=== PATIENT | female | born 1995 | race Hispanic/Latino ===

== ENCOUNTER 2017-09-17 06:54 | Emergency (ER) | payer SELFPAY ==
[2017-09-17 07:41] LABS: Urine Blood 2+ (NEG); Urine Glucose NEGATIVE (NEG); Urine Protein 1+ (NEG); Urine pH 6.5 (5.0-7.0)
[2017-09-17 07:45] LABS: Urine Bacteria 20-50 /HPF (<20); Urine Culture Reflex Order NOT NEEDED; Urine Mucus HEAVY /HPF (NONE SEEN)
--- NOTE | 2017-09-17 08:05 | EDPHYS ---
Physician Documentation [facility] Name: Norma Faulkner Age: 22 yrs Sex: Female : 1995 Arrival Date: 09/17/2017 Time: 06:55 Bed 7 Private MD: ED Physician Deacon Bravo HPI: 09/17 07:57 This 22 yrs old Female presents to ER via Ambulatory with complaints of gs Abdominal Cramping. 07:57 The patient presents with pelvic pain, that is located in/on the pelvis, urinary gs symptoms, dysuria. Onset: The symptoms/episode began/occurred yesterday. Modifying factors: The symptoms are alleviated by nothing, the symptoms are aggravated by nothing. Associated signs and symptoms: Pertinent positives: cramping, dysuria, Pertinent negatives: diarrhea, fever, nausea, vomiting. Severity of symptoms: At their worst the symptoms were moderate, in the emergency department the symptoms are unchanged. 07:57 The patient has experienced similar episodes in the past, a few times, today's symptoms gs are similar, to when the patient was apparently diagnosed with uti. 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 - Social history:: Smoking status: Patient/guardian denies using tobacco. ROS: 07:57 All other systems are negative. gs Exam: 07:57 Head/Face: Normocephalic, atraumatic. Eyes: Pupils equal round and reactive to light, gs extra-ocular motions intact. Lids and lashes normal. Conjunctiva and sclera are non-icteric and not injected. Cornea within normal limits. Periorbital areas with no swelling, redness, or edema. ENT: Nares patent. No nasal discharge, no septal abnormalities noted. Tympanic membranes are normal and external auditory canals are clear. Oropharynx with no redness, swelling, or masses, exudates, or evidence of obstruction, uvula midline. Mucous membranes moist. Neck: Trachea midline, no thyromegaly or masses palpated, and no cervical lymphadenopathy. Supple, full range of motion without nuchal rigidity, or vertebral point tenderness. No Meningismus. Chest/axilla: Normal chest wall appearance and motion. Nontender with no deformity. No lesions are appreciated. Cardiovascular: Regular rate and rhythm with a normal S1 and S2. No gallops, murmurs, or rubs. Normal PMI, no JVD. No pulse deficits. Respiratory: Lungs have equal breath sounds bilaterally, clear to auscultation and percussion. No rales, rhonchi or wheezes noted. No increased work of breathing, no retractions or nasal flaring. Back: No spinal tenderness. No costovertebral tenderness. Full range of motion. Skin: Warm, dry with normal turgor. Normal color with no rashes, no lesions, and no evidence of cellulitis. MS/ Extremity: Pulses equal, no cyanosis. Neurovascular intact. Full, normal range of motion. Neuro: Awake and alert, GCS 15, oriented to person, place, time, and situation. Cranial nerves II-XII grossly intact. Motor strength 5/5 in all extremities. Sensory grossly intact. Cerebellar exam normal. Normal gait. 07:57 Constitutional: The patient appears alert, awake. 07:57 Abdomen/GI: Palpation: mild abdominal tenderness, in the suprapubic area, right lower quadrant and left lower quadrant, rebound tenderness, is not appreciated. Vital Signs: 07:17 BP 131 / 89; Pulse 77; Resp 16; Temp 98.2; Pulse Ox 99% on R/A; Weight 69.85 kg; Height iw 5 ft. (152.40 cm); Pain 9/10; 07:17 Body Mass Index 30.08 (69.85 kg, 152.40 cm) MDM: 07:28 Patient medically screened. gs 07:57 Differential diagnosis: nonspecific abdominal pain, urinary tract infection. Data reviewed: vital signs, nurses notes. Response to treatment: the patient's symptoms have mildly improved after treatment, and as a result, I will discharge patient. 09/17 07:28 Order name: Urine Microscopic Only; Complete Time: 07:49 09/17 07:33 Order name: Urine Dipstick--Ancillary (enter results); Complete Time: 07:42 eb 09/17 07:28 Order name: Urine Dipstick-Ancillary (obtain specimen); Complete Time: 07:39 09/17 07:33 Order name: Urine --Ancillary (enter results); Complete Time: 07:42 eb Administered Medications: No medications were administered Disposition: 09/17/17 08:04 Discharged to Home. Impression: Cystitis. - Condition is Stable. - Discharge Instructions: Urinary Tract Infection. - Prescriptions for Macrobid 100 mg Oral Capsule - take 1 capsule by ORAL route every 12 hours for 5 days; 10 capsule. - Medication Reconciliation Form, Thank You Letter, Antibiotic Education, Prescription Opioid Use form. - Follow up: Deacon Bravo MD; When: 2 - 3 days; Reason: Re-evaluation by your physician. Signatures: Dispatcher [employer] EDJodi Christianson RN RN iw Baxter, Heather, RN RN Deacon Bravo MD MD
--- NOTE | 2017-09-17 08:05 | ER ---
Nurse's Notes [facility] Name: Norma Faulkner Age: 22 yrs Sex: Female : 1995 Arrival Date: 09/17/2017 Time: 06:55 Bed 7 Private MD: Diagnosis: Cystitis Presentation: 09/17 07:20 Presenting complaint: Patient states: has had lower abd cramping X 2 days, worse today, iw also started having pain with urination today, denies vomiting or diarrhea, c/o mild nausea. Transition of care: patient was not received from another setting of care. Onset of symptoms was September 15, 2017. Initial Sepsis Screen: Does the patient meet any 2 criteria? No. Patient's initial sepsis screen is negative. Does the patient have a suspected source of infection? No. Patient's initial sepsis screen is negative. Care prior to arrival: None. 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 - Social history:: Smoking status: Patient/guardian denies using tobacco. Screenin:22 Abuse screen: Denies threats or abuse. Denies injuries from another. Nutritional hb screening: No deficits noted. Tuberculosis screening: No symptoms or risk factors identified. Fall Risk None identified. Assessment: 07:25 General: Appears in no apparent distress. Behavior is calm, cooperative. Pain: Pain hb currently is 1 out of 10 on a pain scale. Neuro: Level of Consciousness is awake, alert, obeys commands, Oriented to person, place, time, situation. Cardiovascular: Capillary refill < 3 seconds Patient's skin is warm and dry. Respiratory: Airway is patent Respiratory effort is even, unlabored, Respiratory pattern is regular, symmetrical, Breath sounds are clear bilaterally. GI: Abdomen is non-distended, Bowel sounds present X 4 quads. Abd is soft and non tender X 4 quads. : No signs and/or symptoms were reported regarding the genitourinary system. EENT: No signs and/or symptoms were reported regarding the EENT system. Derm: No signs and/or symptoms reported regarding the dermatologic system. Skin is intact, is healthy with good turgor, Skin is pink, warm \T\ dry. Musculoskeletal: No signs and/or symptoms reported regarding the musculoskeletal system. Vital Signs: 07:17 BP 131 / 89; Pulse 77; Resp 16; Temp 98.2; Pulse Ox 99% on R/A; Weight 69.85 kg; Height iw 5 ft. (152.40 cm); Pain 9/10; 07:17 Body Mass Index 30.08 (69.85 kg, 152.40 cm) iw ED Course: 06:55 Patient arrived in ED. ds1 07:16 Deacon Bravo MD is Attending Physician. gs 07:17 Thiago Fishman RN is Primary Nurse. mg2 07:17 Arm band placed on. iw 07:21 Triage completed. iw 07:21 Pavithra Lisa RN is Primary Nurse. hb 07:22 Patient has correct armband on for positive identification. Placed in gown. Bed in low hb position. Call light in reach. Side rails up X 1. 08:04 Deacon Bravo MD is Referral Physician. gs 08:12 No provider procedures requiring assistance completed. Patient did not have IV access hb during this emergency room visit. Administered Medications: No medications were administered Outcome: 08:04 Discharge ordered by . gs 08:12 Discharged to home ambulatory. hb 08:12 Condition: stable 08:12 Discharge instructions given to patient, Instructed on discharge instructions, follow up and referral plans. medication usage, Demonstrated understanding of instructions, follow-up care, medications, Prescriptions given X 1. 08:13 Patient left the ED. hb Signatures: Alessandra Loyola ds1 Jodi Alexandra RN RN Pavithra Lisa RN RN hb Deacon Bravo MD MD Thiago Fishman RN RN mg2 Corrections: (The following items were deleted from the chart) 07:22 07:17 BP 131 / 89; Pulse 77bpm; Resp 16bpm; Pulse Ox 99% RA; mg2 iw
[2017-09-17 08:17] VITALS: BP 131/89; TEMP 98.2; O2SAT 99
== END 2017-09-17 08:13 | disposition home or self-care (01) ==
LOC: ER 06:54
DX: N30.90 Cystitis, unspecified without hematuria (principal)
CPT/HCPCS: 81003; 81015; 81025; 99282

== ENCOUNTER 2018-05-05 10:26 | Emergency (ER) | payer OTHER, SELFPAY ==
--- OUTSIDE RECORDS SUMMARY | 2018-05-05 10:27 | XMS REPORT ---
:1995 Author Organization [facility] Address [address] [place] [address] Dr. Murphy [address] [place] [id number] Care Team Providers Name Role Phone Unavailable Unavailable Unavailable Problems This patient has no known problems. Allergies, Adverse Reactions, Alerts This patient has no known allergies or adverse reactions. Medications This patient has no known medications.
--- NOTE | 2018-05-05 11:55 | RAD REPORT ---
EXAM DESCRIPTION: RAD - Ankle Left 3 View -05/05/2018 11:19 am CLINICAL HISTORY: Left ankle pain status post injury FINDINGS: No fracture or dislocation is seen. Soft tissue swelling present
--- NOTE | 2018-05-05 12:10 | EDPHYS ---
Physician Documentation [facility] Name: Norma Faulkner Age: 22 yrs Sex: Female : 1995 Arrival Date: 05/05/2018 Time: 10:29 Bed 12 Private MD: Hugo Flower E ED Physician Deacon Bravo HPI: 05/05 12:04 This 22 yrs old Female presents to ER via Ambulatory with complaints of Ankle gs Injury. 12:04 The patient presents with an injury. The complaints affect the left ankle. Onset: The gs symptoms/episode began/occurred acutely. Context: The mechanism of injury involved inversion of the affected ankle. The mechanism of injury involved eversion of the affected ankle. Associated signs and symptoms: Pertinent negatives: numbness. Modifying factors: The symptoms are alleviated by nothing, the symptoms are aggravated by weight bearing. Severity of symptoms: At their worst the symptoms were moderate, in the emergency department the symptoms are unchanged. The patient has not experienced similar symptoms in the past. 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 - Social history:: Smoking status: Patient/guardian denies using tobacco. - Ebola Screening: : Patient denies travel to an Ebola-affected area in the 21 days before illness onset. ROS: 12:04 All other systems are negative. gs Exam: 12:04 Constitutional: The patient appears alert, awake. gs 12:04 Musculoskeletal/extremity: ROM: limited active range of motion due to pain, limited passive range of motion due to pain, Circulation is intact in all extremities. Sensation intact. Joints: the left ankle displays effusion, painful range of motion, swelling, tenderness. Vital Signs: 10:37 BP 119 / 90; Pulse 93; Resp 18; Temp 98.0; Pulse Ox 100% on R/A; Weight 71.67 kg (R); aj1 Height 5 ft. 0 in. (152.40 cm) (R); Pain 10/10; 10:37 Body Mass Index 30.86 (71.67 kg, 152.40 cm) aj1 MDM: 11:21 Patient medically screened. gs 12:04 Differential diagnosis: fracture, sprain. Data reviewed: vital signs, nurses notes. Counseling: I had a detailed discussion with the patient and/or guardian regarding: the historical points, exam findings, and any diagnostic results supporting the discharge/admit diagnosis, radiology results. Response to treatment: the patient's symptoms have mildly improved after treatment, and as a result, I will discharge patient. 05/05 10:46 Order name: Ankle Left 3 View; Complete Time: 12:06 EDMS Administered Medications: No medications were administered Disposition: 05/05/18 12:09 Discharged to Home. Impression: Sprain of ankle. - Condition is Stable. - Discharge Instructions: Ankle Sprain. - Medication Reconciliation Form, Thank You Letter, Antibiotic Education, Prescription Opioid Use form. - Follow up: Epifanio Mcintyre MD; When: 2 - 3 days; Reason: Re-evaluation by your physician. Signatures: Dispatcher [employer] EDHI Una Armstrong RN RN aj1 Deonna Hernandez RN RN ss Deacon Bravo MD MD Corrections: (The following items were deleted from the chart) 11:34 11:24 Ankle Left 3 View+RAD.RAD.BRZ ordered. [facility] EDHI 12:24 12:09 05/05/2018 12:09 Discharged to Home. Impression: Sprain of ankle. Condition is ss Stable. Forms are Medication Reconciliation Form, Thank You Letter, Antibiotic Education, Prescription Opioid Use. Follow up: Dr. Epifanio Mcintyre; When: 2 - 3 days; Reason: Re-evaluation by your physician. gs
--- NOTE | 2018-05-05 12:10 | ER ---
Nurse's Notes [facility] Name: Norma Faulkner Age: 22 yrs Sex: Female : 1995 Arrival Date: 05/05/2018 Time: 10:29 Bed 12 Private MD: Hugo Flower E Diagnosis: Sprain of ankle Presentation: 05/05 10:35 Presenting complaint: Patient states: She was trying to catch someone who was falling aj1 this morning, but she was wearing high heels and got knocked off balance and fell and rolled her left ankle. Patient reports pain to left ankle, states that she can not bear weight on left ankle due to pain. Transition of care: patient was not received from another setting of care. Onset of symptoms was May 05, 2018 at 06:00. Risk Assessment: Do you want to hurt yourself or someone else? Patient reports no desire to harm self or others. Initial Sepsis Screen: Does the patient meet any 2 criteria? No. Patient's initial sepsis screen is negative. Does the patient have a suspected source of infection? No. Patient's initial sepsis screen is negative. Care prior to arrival: None. 10:35 Method Of Arrival: Ambulatory aj1 10:35 Acuity: WINDY 4 aj1 Triage Assessment: 10:37 General: Appears in no apparent distress. uncomfortable, Behavior is calm, cooperative, aj1 appropriate for age. Pain: Complains of pain in left medial ankle Pain currently is 10 out of 10 on a pain scale. Neuro: Level of Consciousness is awake, alert, obeys commands. Cardiovascular: Patient's skin is warm and dry. Respiratory: Airway is patent Respiratory effort is even, unlabored, Respiratory pattern is regular, symmetrical. Musculoskeletal: Range of motion: limited in left ankle. 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 - Social history:: Smoking status: Patient/guardian denies using tobacco. - Ebola Screening: : Patient denies travel to an Ebola-affected area in the 21 days before illness onset. Screenin:40 Abuse screen: Denies threats or abuse. Denies injuries from another. Nutritional aj1 screening: No deficits noted. Tuberculosis screening: No symptoms or risk factors identified. Assessment: 10:40 General: Appears in no apparent distress. uncomfortable, Behavior is calm, cooperative, aj1 appropriate for age. Pain: Complains of pain in left ankle Pain does not radiate. Pain currently is 10 out of 10 on a pain scale. Neuro: Level of Consciousness is awake, alert, obeys commands. Cardiovascular: Patient's skin is warm and dry. Respiratory: Airway is patent Respiratory effort is even, unlabored, Respiratory pattern is regular, symmetrical. GI: No signs and/or symptoms were reported involving the gastrointestinal system. : No signs and/or symptoms were reported regarding the genitourinary system. EENT: No signs and/or symptoms were reported regarding the EENT system. Derm: No signs and/or symptoms reported regarding the dermatologic system. Skin is pink, warm \T\ dry. normal. Musculoskeletal: Capillary refill < 3 seconds, in left toes. Range of motion: limited in left ankle Swelling present in left ankle. Vital Signs: 10:37 BP 119 / 90; Pulse 93; Resp 18; Temp 98.0; Pulse Ox 100% on R/A; Weight 71.67 kg (R); aj1 Height 5 ft. 0 in. (152.40 cm) (R); Pain 10/10; 10:37 Body Mass Index 30.86 (71.67 kg, 152.40 cm) aj1 ED Course: 10:29 Patient arrived in ED. sb2 10:29 Hugo Flower MD is Private Physician. sb2 10:36 Triage completed. aj1 10:37 Arm band placed on Patient placed in an exam room. aj1 10:40 Deacon Bravo MD is Attending Physician. gs 10:40 Patient has correct armband on for positive identification. Call light in reach. aj1 10:40 Extremity injury workup initiated per nursing protocol. aj1 10:40 No provider procedures requiring assistance completed. aj1 11:20 Ankle Left 3 View In Process Unspecified. EDMS 11:21 Deonna Hernandez, MARIELY is Primary Nurse. ss 12:06 Epifanio Mcintyre MD is Referral Physician. gs 12:24 Patient did not have IV access during this emergency room visit. ss Administered Medications: No medications were administered Outcome: 12:09 Discharge ordered by . 12:24 Discharged to home ambulatory. 12:24 Condition: good 12:24 Discharge instructions given to patient, family, Instructed on discharge instructions, follow up and referral plans. medication usage, Demonstrated understanding of instructions, follow-up care, medications. 12:24 Patient left the ED. Signatures: Dispatcher [employer] EDNH Una Armstrong RN RN aj1 Deonna Hernandez RN RN Deacon Bravo MD MD Qi Duggan sb2
[2018-05-05 12:40] VITALS: BP 119/90; TEMP 98; O2SAT 100
== END 2018-05-05 12:24 | disposition home or self-care (01) ==
LOC: ER 10:26
DX: S93.402A Sprain of unspecified ligament of left ankle, initial encounter (principal); X58.XXXA Exposure to other specified factors, initial encounter; Y93.9 Activity, unspecified; Y92.9 Unspecified place or not applicable
CPT/HCPCS: 99283

== ENCOUNTER 2019-03-31 09:28 | Emergency (ER) | payer OTHER ==
--- NOTE | 2019-03-31 10:43 | ER ---
Nurse's Notes [facility] Name: Norma Faulkner Age: 23 yrs Sex: Female : 1995 Arrival Date: 03/31/2019 Time: 09:37 Bed 18 Private MD: Hugo Flower E Diagnosis: Conjunctivitis Presentation: 03/31 09:54 Presenting complaint: Patient states: L eye redness and pain that began 2 days ago. ss Denies drainage. Transition of care: patient was not received from another setting of care. Mechanism of Injury: No Mechanism of Injury. The patient denies any loss of vision. Onset of symptoms was March 28, 2019. Risk Assessment: Do you want to hurt yourself or someone else? Patient reports no desire to harm self or others. Initial Sepsis Screen: Does the patient meet any 2 criteria? No. Patient's initial sepsis screen is negative. Does the patient have a suspected source of infection? No. Patient's initial sepsis screen is negative. Care prior to arrival: None. 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 - Social history:: Smoking status: Patient/guardian denies using tobacco. - Ebola Screening: : Patient denies exposure to infectious person Patient denies travel to an Ebola-affected area in the 21 days before illness onset. Screenin:55 Abuse screen: Denies threats or abuse. Nutritional screening: No deficits noted. em Tuberculosis screening: No symptoms or risk factors identified. Fall Risk None identified. Vital Signs: 09:53 BP 132 / 92; Pulse 89; Resp 14; Temp 97.9(TE); Pulse Ox 98% on R/A; Weight 68.04 kg; ss Height 5 ft. 0 in. (152.40 cm); Pain 3/10; 09:53 Body Mass Index 29.29 (68.04 kg, 152.40 cm) ED Course: 09:37 Patient arrived in ED. mr 09:38 None, None is Private Physician. mr 09:38 Hugo Flower MD is Private Physician. mr 09:53 Arm band placed on right wrist. ss 09:55 Triage completed. ss 10:30 [facility]ede Stone F[facility]C [facility]. snw 10:30 Michael Johns MD is Attending Physician. snw 10:39 Jordan Scott LVN is Primary Nurse. em 10:55 Patient has correct armband on for positive identification. em 11:06 No provider procedures requiring assistance completed. Patient did not have IV access em during this emergency room visit. Administered Medications: 11:00 Drug: Tobramycin Drops (0.3 %) 2 drops Route: Ophthalmic; Site: left eye; em 11:05 Follow up: Response: Medication administered at discharge. em Outcome: 10:42 Discharge ordered by . snw 11:06 Discharged to home ambulatory. em 11:06 Condition: good 11:06 Discharge instructions given to patient, Instructed on discharge instructions, follow up and referral plans. medication usage, Demonstrated understanding of instructions, follow-up care, medications, Prescriptions given X 1. 11:07 Patient left the ED. em Signatures: Dede Stone FNP-C PLASTIC [employer]S FABRICATOR TRIMMER-Csnw Saundra Prasad mr Jordan Scott LVN LVN em Deonna Hernandez, MARIELY RN
--- NOTE | 2019-03-31 10:43 | EDPHYS ---
Physician Documentation [facility] Name: Norma Faulkner Age: 23 yrs Sex: Female : 1995 Arrival Date: 03/31/2019 Time: 09:37 Bed 18 Private MD: Hugo Flower E ED Physician Michael Johns HPI: 03/31 13:19 This 23 yrs old Female presents to ER via Ambulatory with complaints of Eye snw Pain. 13:19 The patient is experiencing redness, The patient sustained None. to the left eye, snw caused by an unknown mechanism. Onset: The symptoms/episode began/occurred suddenly, 3 day(s) ago, and became persistent. Duration: the symptoms are continuous. Aggravated by nothing. Associated signs and symptoms: Pertinent positives: None. Patient wears glasses. Severity of symptoms: At their worst the symptoms were mild. It is unknown whether or not the patient has had similar symptoms in the past. The patient has not recently seen a physician. using OTC eye . AUDIT TECH: 09:53 LMP 03/26/2019 ss Historical: - Allergies: 09:55 NKA; ss - Home Meds: 09:55 None [Active]; ss - PMHx: 09:55 None; ss - PSHx: 09:55 None; ss - Immunization history:: Adult Immunizations up to date. - Social history:: Smoking status: Patient/guardian denies using tobacco. - Ebola Screening: : Patient denies exposure to infectious person Patient denies travel to an Ebola-affected area in the 21 days before illness onset. ROS: 13:18 Constitutional: Negative for fever, chills, and weight loss, ENT: Negative for injury, snw pain, and discharge, Neck: Negative for injury, pain, and swelling, Cardiovascular: Negative for chest pain, palpitations, and edema, Respiratory: Negative for shortness of breath, cough, wheezing, and pleuritic chest pain, Abdomen/GI: Negative for abdominal pain, nausea, vomiting, diarrhea, and constipation, Back: Negative for injury and pain, : Negative for injury, bleeding, discharge, and swelling, MS/Extremity: Negative for injury and deformity, Skin: Negative for injury, rash, and discoloration, Neuro: Negative for headache, weakness, numbness, tingling, and seizure, Psych: Negative for depression, anxiety, suicide ideation, homicidal ideation, and hallucinations. 13:18 Eyes: Positive for redness, of the outer aspect of conjuctiva of left eye and inner aspect of conjunctiva of left eye. Exam: 13:17 Constitutional: This is a well developed, well nourished patient who is awake, alert, snw and in no acute distress. Head/Face: Normocephalic, atraumatic. ENT: Nares patent. No nasal discharge, no septal abnormalities noted. Tympanic membranes are normal and external auditory canals are clear. Oropharynx with no redness, swelling, or masses, exudates, or evidence of obstruction, uvula midline. Mucous membranes moist. Neck: Trachea midline, no thyromegaly or masses palpated, and no cervical lymphadenopathy. Supple, full range of motion without nuchal rigidity, or vertebral point tenderness. No Meningismus. Chest/axilla: Normal chest wall appearance and motion. Nontender with no deformity. No lesions are appreciated. Cardiovascular: Regular rate and rhythm with a normal S1 and S2. No gallops, murmurs, or rubs. Normal PMI, no JVD. No pulse deficits. Respiratory: Lungs have equal breath sounds bilaterally, clear to auscultation and percussion. No rales, rhonchi or wheezes noted. No increased work of breathing, no retractions or nasal flaring. Abdomen/GI: Soft, non-tender, with normal bowel sounds. No distension or tympany. No guarding or rebound. No evidence of tenderness throughout. Back: No spinal tenderness. No costovertebral tenderness. Full range of motion. Skin: Warm, dry with normal turgor. Normal color with no rashes, no lesions, and no evidence of cellulitis. MS/ Extremity: Pulses equal, no cyanosis. Neurovascular intact. Full, normal range of motion. Neuro: Awake and alert, GCS 15, oriented to person, place, time, and situation. Cranial nerves II-XII grossly intact. Motor strength 5/5 in all extremities. Sensory grossly intact. Cerebellar exam normal. Normal gait. Psych: Awake, alert, with orientation to person, place and time. Behavior, mood, and affect are within normal limits. 13:17 Eyes: Periorbital structures: appear normal, Pupils: no acute changes, Extraocular movements: no acute changes, Conjunctiva: injected, in the left eye, Corneas: are normal, Sclera: no appreciated abnormality. Vital Signs: 09:53 BP 132 / 92; Pulse 89; Resp 14; Temp 97.9(TE); Pulse Ox 98% on R/A; Weight 68.04 kg; ss Height 5 ft. 0 in. (152.40 cm); Pain 3/10; 09:53 Body Mass Index 29.29 (68.04 kg, 152.40 cm) ss MDM: 10:31 Patient medically screened. snw 13:19 Data reviewed: vital signs, nurses notes. Data interpreted: Pulse oximetry: on room air snw is 98 %. Interpretation: normal. Counseling: I had a detailed discussion with the patient and/or guardian regarding: the historical points, exam findings, and any diagnostic results supporting the discharge/admit diagnosis, the presence of at least one elevated blood pressure reading (>120/80) during this emergency department visit, the need for outpatient follow up, to return to the emergency department if symptoms worsen or persist or if there are any questions or concerns that arise at home. Special discussion: I discussed in detail with the patient the higher chance of wound infection based on his presenting history. Based on the history and exam findings, there is no indication for further emergent testing or inpatient evaluation. I discussed with the patient/guardian the need to see the primary care provider for further evaluation of the symptoms. Administered Medications: 11:00 Drug: Tobramycin Drops (0.3 %) 2 drops Route: Ophthalmic; Site: left eye; em 11:05 Follow up: Response: Medication administered at discharge. em Disposition: 03/31/19 10:42 Discharged to Home. Impression: Conjunctivitis. - Condition is Stable. - Discharge Instructions: Bacterial Conjunctivitis, Viral Conjunctivitis, Hand Washing. - Prescriptions for Polytrim 10,000 unit- 1 mg/mL Ophthalmic drops - instill 1 drop by OPHTHALMIC route every 4 hours to left eye; 1 bottle. Zyrtec 10 mg Oral Tablet - take 1 tablet by ORAL route once daily As needed; 20 tablet. - Work release form, Medication Reconciliation Form, Thank You Letter, Antibiotic Education, Prescription Opioid Use form. - Follow up: Emergency Department; When: As needed; Reason: Worsening of condition. Follow up: Private Physician; When: 2 - 3 days; Reason: Recheck today's complaints, Continuance of care, Re-evaluation by your physician. Addendum: 04/01/2019 16:41 Co-signature as Attending Physician, Michael Johns MD. m a2 Signatures: Dede Stone, VETERINARY TECHNICIAN ASSISTANT-C VETERINARY TECHNICIAN ASSISTANT-Csnw Jordan Scott, MANAGEMENT PROFESSIONAL MANAGEMENT PROFESSIONAL em Deonna Hernandez, MARIELY SCHUSTER Michael Johns MD MD ma2 Corrections: (The following items were deleted from the chart) 03/31 11:07 10:42 03/31/2019 10:42 Discharged to Home. Impression: Conjunctivitis. Condition is em Stable. Forms are Medication Reconciliation Form, Thank You Letter, Antibiotic Education, Prescription Opioid Use. Follow up: Emergency Department; When: As needed; Reason: Worsening of condition. Follow up: Private Physician; When: 2 - 3 days; Reason: Recheck today's complaints, Continuance of care, Re-evaluation by your physician. snw
[2019-03-31] MEDS ORDERED: TOBRAMYCIN SULF 0.3% OPTH OINT ONE (11:00)
[2019-03-31 11:16] VITALS: BP 132/92; TEMP 97.9; O2SAT 98
--- OUTSIDE RECORDS SUMMARY | 2019-04-01 07:06 | XMS REPORT ---
:1995 [facility] Address [address] [place] [address] [address] [place] [address] Care Team Providers Name Role Phone Unavailable Unavailable Unavailable Problems This patient has no known problems. Allergies, Adverse Reactions, Alerts This patient has no known allergies or adverse reactions. Medications This patient has no known medications.
== END 2019-03-31 11:07 | disposition home or self-care (01) ==
LOC: ER 09:28
DX: H10.9 Unspecified conjunctivitis (principal)
CPT/HCPCS: 99283

== ENCOUNTER 2019-06-19 15:44 | Emergency (ER) | payer OTHER ==
--- OUTSIDE RECORDS SUMMARY | 2019-06-19 15:46 | XMS REPORT ---
:1995 [facility] Address [address] [place] [address] [address] [place] [address] Care Team Providers Name Role Phone Unavailable Unavailable Unavailable Problems This patient has no known problems. Allergies, Adverse Reactions, Alerts This patient has no known allergies or adverse reactions. Medications This patient has no known medications.
--- NOTE | 2019-06-19 16:52 | ER ---
Nurse's Notes [facility] Name: Norma Faulkner Age: 23 yrs Sex: Female : 1995 Arrival Date: 06/19/2019 Time: 15:45 Bed 11 Private MD: Diagnosis: Influenza due to other identified influenza virus-Influenza B Presentation: 06/19 16:02 Presenting complaint: Patient states: R[place], lightheaded and sore throat started jl7 yesterday. Transition of care: patient was not received from another setting of care. Onset of symptoms was June 18, 2019. Risk Assessment: Do you want to hurt yourself or someone else? Patient reports no desire to harm self or others. Initial Sepsis Screen: Does the patient meet any 2 criteria? No. Patient's initial sepsis screen is negative. Does the patient have a suspected source of infection? No. Patient's initial sepsis screen is negative. Care prior to arrival: Medication(s) given: Tylenol, 650 mg, taken at 1000. 16:02 Method Of Arrival: Ambulatory [facility] 16:02 Acuity: WINDY [address] 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 Historical: - Allergies: 16:04 NKA; 7 - Home Meds: 16:04 None [Active]; jl7 - PMHx: 16:04 None; 7 - PSHx: 16:04 ; [facility] - Immunization history:: Adult Immunizations not up to date. - Coronavirus screen:: The patient has NOT traveled to [place], [place], or [place] in the past 14 days. Proceed with normal triage process as indicated. - Social history:: Smoking status: Patient denies any tobacco usage or history of. - Ebola Screening: : No symptoms or risks identified at this time. Vital Signs: 16:04 BP 139 / 93; Pulse 109; Resp 19 S; Temp 100.3(O); Pulse Ox 100% on R/A; Weight 73.[address] [facility] (R); Height 5 ft. (152.40 cm) (R); Pain 9/10; 16:04 Body Mass Index 31.64 (73.48 kg, 152.40 cm) [facility] ED Course: 15:45 Patient arrived in ED. as 16:04 Triage completed. jl7 16:04 Arm band placed on right wrist. jl7 16:06 Ismael Farias NP is PHCP. pm1 16:06 Joaquin Chaney MD is Attending Physician. pm1 17:18 Jodi Alexandra RN is Primary Nurse. iw Administered Medications: No medications were administered Outcome: 16:52 Discharge ordered by . pm1 17:18 Patient left the ED. iw Signatures: Adelita Cameron as Jodi Alexandra RN RN iw Ismael Farias NP SHOEMAKING FINISHER pm1 Nnamdi Daniels RN RN jl7
--- NOTE | 2019-06-19 16:52 | EDPHYS ---
Physician Documentation [facility] Name: Norma Faulkner Age: 23 yrs Sex: Female : 1995 Arrival Date: 06/19/2019 Time: 15:45 Bed 11 Private MD: ED Physician Joaquin Chaney HPI: 06/19 16:47 This 23 yrs old Female presents to ER via Ambulatory with complaints of pm1 Headache. 16:48 The patient complains of pain to the forehead. The patient describes the headache as a pm1 pressure. Onset: The symptoms/episode began/occurred this morning, at 03:00. Associated signs and symptoms: Pertinent positives: bilateral ear pain, sinus pressure and congestion, post nasal drip with sore throat, occasional cough, body aches, and chills. Severity of symptoms: in the emergency department the pain has improved. It is unknown whether or not the patient has recently seen a physician. Improvement in symptoms with Tylenol.. 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 - Coronavirus screen:: The patient has NOT traveled to [place], [place], or [place] in the past 14 days. Proceed with normal triage process as indicated. - Social history:: Smoking status: Patient denies any tobacco usage or history of. - Ebola Screening: : No symptoms or risks identified at this time. ROS: 16:48 Eyes: Negative for injury, pain, redness, and discharge. pm1 16:48 Neck: Negative for injury, pain, and swelling, Cardiovascular: Negative for chest pain, palpitations, and edema. 16:48 Abdomen/GI: Negative for abdominal pain, nausea, vomiting, diarrhea, and constipation, Back: Negative for injury and pain, MS/Extremity: Negative for injury and deformity, Skin: Negative for injury, rash, and discoloration, Neuro: Negative for headache, weakness, numbness, tingling, and seizure. 16:48 Constitutional: Positive for chills, Negative for poor PO intake. 16:48 ENT: Positive for ear pain, sinus congestion, sinus pain, sore throat. 16:48 Respiratory: Positive for cough, Negative for shortness of breath, sputum production, wheezing. Exam: 16:48 Constitutional: This is a well developed, well nourished patient who is awake, alert, pm1 and in no acute distress. 16:48 Eyes: Pupils equal round and reactive to light, extra-ocular motions intact. Lids and lashes normal. Conjunctiva and sclera are non-icteric and not injected. Cornea within normal limits. Periorbital areas with no swelling, redness, or edema. ENT: Nares patent. No nasal discharge, no septal abnormalities noted. Tympanic membranes are normal and external auditory canals are clear. Oropharynx with no redness, swelling, or masses, exudates, or evidence of obstruction, uvula midline. Mucous membranes moist. Neck: Trachea midline, no thyromegaly or masses palpated, and no cervical lymphadenopathy. Supple, full range of motion without nuchal rigidity, or vertebral point tenderness. No Meningismus. Chest/axilla: Normal chest wall appearance and motion. Nontender with no deformity. No lesions are appreciated. Cardiovascular: Regular rate and rhythm with a normal S1 and S2. No gallops, murmurs, or rubs. Normal PMI, no JVD. No pulse deficits. Respiratory: Lungs have equal breath sounds bilaterally, clear to auscultation and percussion. No rales, rhonchi or wheezes noted. No increased work of breathing, no retractions or nasal flaring. Abdomen/GI: Soft, non-tender, with normal bowel sounds. No distension or tympany. No guarding or rebound. No evidence of tenderness throughout. Back: No spinal tenderness. No costovertebral tenderness. Full range of motion. Skin: Warm, dry with normal turgor. Normal color with no rashes, no lesions, and no evidence of cellulitis. MS/ Extremity: Pulses equal, no cyanosis. Neurovascular intact. Full, normal range of motion. 16:48 Head/face: Sinus tenderness, that is mild, is located over the right frontal sinus and left frontal sinus. 16:48 Neuro: Orientation: is normal, Mentation: is normal, Motor: is normal, moves all fours. Vital Signs: 16:04 BP 139 / 93; Pulse 109; Resp 19 S; Temp 100.3(O); Pulse Ox 100% on R/A; Weight 73.48 kg 7 (R); Height 5 ft. (152.40 cm) (R); Pain 9/10; 16:04 Body Mass Index 31.64 (73.48 kg, 152.40 cm) 7 MDM: 16:08 Patient medically screened. [facility] 16:51 Data reviewed: vital signs. Data interpreted: Pulse oximetry: on room air is 100 %. pm1 Interpretation: normal. 16:52 Counseling: I had a detailed discussion with the patient and/or guardian regarding: the pm1 historical points, exam findings, and any diagnostic results supporting the discharge/admit diagnosis, lab results, the need for outpatient follow up, a family practitioner. 06/19 16:06 Order name: Flu; Complete Time: 16:53 7 06/19 16:06 Order name: Strep; Complete Time: 16:53 [facility] 06/19 16:52 Order name: Throat Culture EDMS Administered Medications: No medications were administered Disposition: 06/20 07:36 Co-signature as Attending Physician, Joaquin Chaney MD I agree with the assessment and [facility] plan of care. Disposition: 06/19/19 16:52 Discharged to Home. Impression: Influenza due to other identified influenza virus - Influenza B. - Condition is Stable. - Discharge Instructions: Influenza, Adult. - Prescriptions for Tamiflu 75 mg Oral Capsule - take 1 tablet by ORAL route every 12 hours for 5 days; 10 tablet. Guaifenesin AC 10- 100 mg/5 mL Oral Liquid - take 10 milliliter by ORAL route every 4 hours As needed; 240 milliliter. - Work release form, Medication Reconciliation Form, Thank You Letter, Antibiotic Education, Prescription Opioid Use form. - Follow up: Emergency Department; When: As needed; Reason: Worsening of condition. Follow up: Private Physician; When: 2 - 3 days; Reason: Recheck today's complaints, Continuance of care, Re-evaluation by your physician. - Problem is new. - Symptoms have improved. Signatures: Dispatcher [employer] EDJoaquin Daniel MD MD cha Williams, Irene RN Ismael Brunner, CAITLIN BOOKKEEPING CLERK pm1 Nnamdi Daniels RN RN jl7 Corrections: (The following items were deleted from the chart) 01/29 17:18 16:52 06/19/2019 16:52 Discharged to Home. Impression: Influenza due to other iw identified influenza virus - Influenza B. Condition is Stable. Forms are Medication Reconciliation Form, Thank You Letter, Antibiotic Education, Prescription Opioid Use. Follow up: Emergency Department; When: As needed; Reason: Worsening of condition. Follow up: Private Physician; When: 2 - 3 days; Reason: Recheck today's complaints, Continuance of care, Re-evaluation by your physician. Problem is new. Symptoms have improved. pm1
[2019-06-19] MEDS ORDERED: AZITHROMYCIN 250 MG TAB ONE (19:18)
[2019-06-19 19:48] VITALS: BP 139/93; TEMP 100.3; O2SAT 100
== END 2019-06-19 17:18 | disposition home or self-care (01) ==
LOC: ER 15:44
DX: J10.1 Influenza due to other identified influenza virus with other respiratory manifestations (principal)
CPT/HCPCS: 87070; 87081; 87804; 99281

== ENCOUNTER 2020-06-26 22:16 | Emergency (ER) | payer OTHER ==
--- OUTSIDE RECORDS SUMMARY | 2020-06-26 22:18 | XMS REPORT | Continuity of Care Document ---
:1995 Author Organization [facility] t Address [address] [place] [address] Care Team Providers Name Role Phone Blanche Huffman Attending Clinician [phone] Problems This patient has no known problems. Allergies, Adverse Reactions, Alerts This patient has no known allergies or adverse reactions. Medications This patient has no known medications. Procedures This patient has no known procedures. Encounters Start End Encounter Admission Attending Care Care Encounter Source Date/Time Date/Time Type Type Clinicians Facility Department ID 2020-06-03 2020-06-03 Office MONA Bean [id number] 08:40:12 09:19:21 Visit Blanche Thurston SWAGING MACHINE OPERATOR [id number] [facility] [id number] MATERNAL [id number] & CHILD [address] [place] [address] Results This patient has no known results.
--- OUTSIDE RECORDS SUMMARY | 2020-06-26 22:19 | XMS REPORT | Summary of Care ---
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 UTI Symp Encounter Details Date Type Department Care Team Description 04/23/2020 Office Visit [facility]- Blanche Beannter for contraceptive management, unspecified type (Primary Dx); PATRIC Garzon UTI symptoms; [address] [facility] [place] [phone] Allergies No Known Allergiesdocumented as of this encounter (statuses as of 04/23/2020) Medications Medication Sig Dispensed Refills Start Date End Date Status NUVARING 0.12-0.015 Insert 1 Each into 16 Each 04/27/2018 Active mg/24 hr vaginal vagina once every insertIndications: month. Insert Encounter for vaginally and leave prescription for in place for 3 nuvaring consecutive weeks, then remove for 1 week. NUVARING (NUVARING) Insert 1 Each into 1 Each 05/20/2019 Active 0.12-0.015 mg/24 hr vagina once every vaginal month. Insert insertIndications: vaginally and leave Encounter for in place for 3 contraceptive consecutive weeks, management, then remove for 1 unspecified type week. levonorgestrel-ethiny Take 1 tablet by 1 Package 2 02/17/2020 Active l estradiol (SRONYX) mouth daily. 0.1-20 mg-mcg per tabletIndications: Encounter for contraceptive management, unspecified type documented as of this encounter (statuses as of 04/23/2020) Active Problems Problem Noted Date UTI symptoms 04/23/2020 Pelvic pain 07/10/2019 Well woman exam 10/12/2017 Encounter for contraceptive management, unspecified ty pe 10/12/2017 Encounter for prescription for nuvaring 10/12/2017 Need for HPV vaccination 10/12/2017 Screening for STD (sexually transmitted disease) 10/12 Obesity (BMI 30-39.9) 10/12/2017 documented as of this encounter (statuses as of 04/23/2020) Resolved Problems Problem Noted Date Resolved Date Chlamydia 10/13/2017 05/20/2019 Overview: amparo neg Overweight (BMI 25.0-29.9) 10/12/2017 05/20/2019 General counseling for initiation of other contraceptive 10/12/2017 measures Vaginal yeast infection 12/04/2014 10/12/2017 documented as of this encounter (statuses as of 04/23/2020) Immunizations Name Administration Dates Next Due HPV9 05/20/2019, 10/12/2017 TDAP 05/22/2013 documented as of this encounter Social History Tobacco Use Types Packs/Day Years Used Date Never Smoker Smokeless Tobacco: Never Used Alcohol Use Drinks/Week oz/Week Comments Yes 0 Standard drinks or equivalent 0.0 social Sex Assigned at Date Recorded Not on file COVID-19 Exposure Response Date Recorded In the last month, have you been in contact with No / Unsure 04/23/2020 1:08 PM SHEET METAL SUPERINTENDENT someone who was confirmed or suspected to have Coronavirus / COVID-19? documented as of this encounter Last Filed Vital Signs Vital Sign Reading Time Taken Comments Blood Pressure 130/85 04/23/2020 1:10 PM SHEET METAL SUPERINTENDENT Pulse 76 04/23/2020 1:10 PM SHEET METAL SUPERINTENDENT Temperature 36.6 C (97.9 F) 04/23/2020 1:10 PM SHEET METAL SUPERINTENDENT Respiratory Rate 16 04/23/2020 1:10 PM SHEET METAL SUPERINTENDENT Oxygen Saturation - - Inhaled Oxygen Concentration - - Weight 73.7 kg (162 lb 8 oz) 04/23/2020 1:10 PM SHEET METAL SUPERINTENDENT Height 165.1 cm (5' 5") 04/23/2020 1:10 PM SHEET METAL SUPERINTENDENT Body Mass Index 27.04 04/23/2020 1:10 PM SHEET METAL SUPERINTENDENT documented in this encounter Progress Notes Blanche Bean, WHCNP - 04/23/2020 12:45 PM CST Chief complaint: Chief Complaint Patient presents with BANQUET MANAGER problem UTI Symp HPI: the patient is here today with reports of urinary symptoms, she reports on last week she had burning on urination and urinary frequency. She reports she did take otc AZO tablets which did provide her with some relief. She reports she is still experiencing lower pelvic pain but the burning has resolved some. Histories OB History Para Term AB Living 2 2 2 2 SAB TAB Ectopic Multiple Live Births 2 # Outcome Date GA Lbr Sanket/2nd Weight Sex Delivery Anes PTL Lv 2 01/07/13 36w0d 5 lb (2.268 kg) F , L MAYANK 1 08/31/11 34w0d 4 lb 11 oz (2.126 kg) F , L MAYANK Complications: Eclampsia Past Medical History: Diagnosis Date Asthma last episode 2013 Overweight (BMI 25.0-29.9) 10/12/2017 Screening for STD (sexually transmitted disease) 10/12/2017 Vaginal yeast infection 12/04/2014 Family History Problem Relation Age of Onset Arthritis NoFHx Asthma NoFHx defects NoFHx Breast Cancer NoFHx Colon Cancer NoFHx Ovarian Cancer NoFHx Uterine Cancer NoFHx Cancer NoFHx Depression NoFHx Diabetes NoFHx Genetic NoFHx Heart NoFHx High cholesterol NoFHx Hypertension NoFHx Neurological NoFHx Mental retardation NoFHx Osteoporosis NoFHx Psychiatry NoFHx Other - see comments NoFHx No family status information on file. Past Surgical History: Procedure Laterality Date SECTION 2011 Social History Socioeconomic History Marital status: Spouse name: Not on file Number of children: Not on file Years of education: Not on file Highest education level: Not on file Occupational History Not on file Social Needs Financial resource strain: Not on file Food insecurity Worry: Not on file Inability: Not on file Transportation needs Medical: Not on file Non-medical: Not on file Tobacco Use Smoking status: Never Smoker Smokeless tobacco: Never Used Substance and Sexual Activity Alcohol use: Yes Alcohol/week: 0.0 standard drinks Comment: social Drug use: No Sexual activity: Yes Partners: Male control/protection: Inserts Comment: last sexua intercourse 05/13/2019 Lifestyle Physical activity Days per week: Not on file Minutes per session: Not on file Stress: Not on file Relationships Social connections Talks on phone: Not on file Gets together: Not on file Attends anabaptist service: Not on file Active member of club or organization: Not on file Attends meetings of clubs or organizations: Not on file Relationship status: Not on file Intimate partner violence Fear of current or ex partner: Not on file Emotionally abused: Not on file Physically abused: Not on file Forced sexual activity: Not on file Other Topics Concern Not on file Social History Narrative Patient lives alone, patient feels safe at home. Social History Substance and Sexual Activity Sexual Activity Yes Partners: Male control/protection: Inserts Comment: last sexua intercourse 05/13/2019 Labs Labs are pending. and No visits with results within 3 Month(s) from this visit. Latest known visit with results is: Office Visit on 07/10/2019 Component Date Value POCT PREG 07/10/2019 Negative On board controls accept* 07/10/2019 Yes C. trachomatis Nucleic A* 07/10/2019 Negative N. gonorrhoeae Nucleic A* 07/10/2019 Negative URINE CULTURE 07/10/2019 No aerobic growth (< 1000 CFU/mL) POCT U SP GRAV 07/10/2019 . POCT PH U 07/10/2019 5 POCT U LEUK EST 07/10/2019 Trace POCT U NIT 07/10/2019 Neg POCT U PROT 07/10/2019 Trace POCT U GLU 07/10/2019 Neg POCT U KETONE 07/10/2019 None POCT U UROBILI 07/10/2019 . POCT U BILI 07/10/2019 . POCT U BLD 07/10/2019 Trace Radiology No new radiology. Allergies Norma has No Known Allergies. Medications Norma has a current medication list which includes the following prescription(s): levonorgestrel-ethinyl estradiol, nuvaring, and nuvaring. Review of Systems Constitutional: Negative. HENT: Negative. Eyes: Negative. Respiratory: Negative. Breasts: Negative. Cardiovascular: Negative. Gastrointestinal: Negative. Genitourinary: Positive for dysuria, frequency and pelvic pain. Musculoskeletal: Negative. Skin: Negative. Neurological: Negative. Psychiatric/Behavioral: Negative. Endocrine: Endocrine negative BP 130/85 (BP Location: Right arm, Patient Position: Sitting, BP CUFF SIZE: Adult Medium) | Pulse 76 | Temp 36.6 C (97.9 F) (Oral) | Resp 16 | Ht 5' 5" (1.651 m) | Wt 162 lb 8 oz (73.7 kg) | BMI 27.04 kg/m Pregravid BMI: Could not be calculated Physical Exam Vitals reviewed. Constitutional: She is oriented to person, place, and time. She appears well- developed and well-nourished. Cardiovascular: Regular rate and rhythm. No peripheral edema present. Pulmonary/Chest: Normal inspiratory effort. Abdominal: Abdomen is soft. No mass palpated. No tenderness present. There is no hepatosplenomegaly,splenomegaly or hepatomegaly. There is no rigidity and no guarding. No hernia palpated or inspected. Neuro/Psychiatric: She has a normal mood and affect. She is oriented to person, place, and time. Bladder: Tenderness palpated. Bladder has no fullness and no mass palpated. CVAT- negative Assessment/Plan Return to clinic in .4 weeks. for WWE or sooner as needed Encounter for contraceptive management, unspecified type (primary encounter diagnosis) Comment: no mgmt today Plan: address pp UTI symptoms Dysuria Comment: reports Plan: POCT URINALYSIS W/O SPECIFIC GRAVITY, URINE CULTURE This visit did not involve counseling and coordination that comprised more than 50% of the visit time. PATRIC Sykes 04/23/2020 1:33 PM T METAL SUPERINTENDENT documented in this encounter Plan of Treatment Date Type Specialty Care Team Description 05/20/2020 Office Visit [facility] Dixon Bean WHCNP [address], [place] [address] [phone] Name Type Priority Associated Diagnoses Date/Ti me URINE CULTURE LAB Routine Dysuria 04/23/2020 1: 40 PM SHEET METAL SUPERINTENDENT Health Maintenance Due Date Last Done Comments HPV VACCINES (3 - 3-dose 09/19/2019 05/20/2019, series) 10/12/2017 INFLUENZA VACCINE (#1) 2020 Depression Screening 05/20/2020 05/20/2019 VARICELLA VACCINES (1 of 2 - 05/20/2020 Pos tponed from 1994 2-dose childhood series) (Insura nce / Financial) PAP SMEAR 05/20/2022 05/20/2019, 05/20/2019, 12/02/2014 DTaP,Tdap,and Td Vaccines (2 05/22/2023 05/22/2013 - Td) PNEUMOCOCCAL 0-64 YEARS Aged Out No longe r eligible based COMBINED SERIES on patient's age to complete this to [facility] documented as of this encounter Procedures Procedure Name Priority Date/Time Associated Comments Diagnosis POCT URINALYSIS W/O Routine 04/23/2020 1:13 PM Dysuria R esults for this SPECIFIC GRAVITY SHEET METAL SUPERINTENDENT procedure a re in the results section. documented in this encounter Results POCT URINALYSIS W/O SPECIFIC GRAVITY (04/23/2020 1:13 PM SHEET METAL SUPERINTENDENT) Pathologist Sig nature POCT PH U 5 5 - 8 mg/dl POCT U LEUK EST Trace Negative - Negative POCT U NIT Neg Negative - Negative POCT U PROT Trace Negative - Negative POCT U GLU Neg Negative - Negative POCT U KETONE Neg Negative - Negative POCT U BLD Trace Negative - Negative Specimen Urine - URINE, CLEAN CATCH documented in this encounter Visit Diagnoses Diagnosis Encounter for contraceptive management, unspecified type - Primary UTI symptoms Dysuria documented in this encounter Insurance Payer Benefit Plan / Subscriber ID Effective Phone Address T [facility] [id number] 2018-Pres [address] Medic aid HEALTH CHOICE - HEALTH CHOICE ent [id number] 1 MANAGED MEDICAID [place], [place] MEDICAID [phone] documented as of this encounter Advance Directives Name Relationship Healthcare Agent Relationship Co mmunication Angy Trevino Mother Health Care Agent [phone] ( Home)
--- OUTSIDE RECORDS SUMMARY | 2020-06-26 22:19 | XMS REPORT | Summary of Care ---
:1995 Author Organization [facility] Address [address] [place] [address] Care Team Providers Name Role Phone Blanche Bean TANA Primary Care Provider Reason for Visit Reason Comments ACTIVITY MANAGER problem UTI Symp Encounter Details Date Type Department Care Team Description 04/23/2020 Office Visit [facility]- Blanche Beannter for contraceptive management, unspecified type (Primary Dx); PATRIC Garzon UTI symptoms; [address] [facility] [place] [phone] Allergies No Known [...] with No / Unsure 04/23/2020 1:08 PM INK PRINTER someone who was confirmed or suspected to have Coronavirus / COVID-19? documented as of this encounter Last Filed Vital Signs Vital Sign Reading Time Taken Comments Blood Pressure 130/85 04/23/2020 1:10 PM INK PRINTER Pulse 76 04/23/2020 1:10 PM INK PRINTER Temperature 36.6 C (97.9 F) 04/23/2020 1:10 PM INK PRINTER Respiratory Rate 16 04/23/2020 1:10 PM INK PRINTER Oxygen Saturation - - Inhaled Oxygen Concentration - - Weight 73.7 kg (162 lb 8 oz) 04/23/2020 1:10 PM INK PRINTER Height 165.1 cm (5' 5") 04/23/2020 1:10 PM INK PRINTER Body Mass Index 27.04 04/23/2020 1:10 PM INK PRINTER documented in this encounter Progress Notes Blanche Bean, WHCNP - 04/23/2020 12:45 PM CST Chief complaint: Chief Complaint Patient presents with ACTIVITY MANAGER problem UTI Symp HPI: the patient [...] file Gets together: Not on file Attends religion service: Not on file Active member of [...] visit time. PATRIC Sykes 04/23/2020 1:33 PM PRINTER documented in this encounter Plan of Treatment Date Type Specialty Care Team Description 05/20/2020 Office Visit [facility] Dixon Bean WHCNP [address], [place] [address] [phone] Name Type Priority Associated Diagnoses Order S chedule URINE CULTURE LAB Routine Dysuria Ordered: 04/23 Health Maintenance Due Date Last Done Comments [...] Dysuria R esults for this SPECIFIC GRAVITY INK PRINTER procedure a re in the results section. documented in this encounter Results POCT URINALYSIS W/O SPECIFIC GRAVITY (04/23/2020 1:13 PM INK PRINTER) Pathologist Sig nature POCT PH U 5 [...] / Subscriber ID Effective Phone Address T located within [facility] [id number] 2018-Pres [address] Medic aid HEALTH CHOICE - HEALTH CHOICE ent [id number] 1 MANAGED MEDICAID [place], [place] MEDICAID [phone] documented as of this encounter Advance Directives Name Relationship Healthcare Agent Relationship Co mmunication Angy Trevino Mother Health Care Agent [phone] ( Home)
--- OUTSIDE RECORDS SUMMARY | 2020-06-26 22:19 | XMS REPORT | Summary of Care ---
:1995 Author Organization [facility] Address [address] [place] [address] Care Team Providers Name Role Phone [facility] Provider [phone] Reason for Visit Reason Onset Date Comments Urinary Problem 04/16/2020 abd pain, peeing sma ll amounts, frequent urination Encounter Details Date Type Department Care Team Description 04/16/2020 Nurse Triage [facility] May Mancilla RN Urinary Problem (abd [address] [place] [address] pain, peein g small [address] amounts, [place] [address] urinati on) [phone] Allergies No Known Allergiesdocumented as of this encounter (statuses as of 04/16/2020) Medications Medication Sig Dispensed Refills Start Date [...] as of this encounter (statuses as of 04/16/2020) Active Problems Problem Noted Date Pelvic pain 07/10/2019 Well woman exam 10/12/2017 Encounter for contraceptive management, unspecified ty pe 10/12/2017 Encounter for prescription for nuvaring 10/12/2017 Need for HPV vaccination 10/12/2017 Screening for STD (sexually transmitted disease) 10/12 Obesity (BMI 30-39.9) 10/12/2017 documented as of this encounter (statuses as of 04/16/2020) Resolved Problems Problem Noted Date Resolved Date Chlamydia 10/13/2017 05/20/2019 Overview: amparo neg Overweight (BMI 25.0-29.9) 10/12/2017 05/20/2019 General counseling for initiation of other contraceptive 10/12/2017 measures Vaginal yeast infection 12/04/2014 10/12/2017 documented as of this encounter (statuses as of 04/16/2020) Immunizations Name Administration Dates Next Due HPV9 05/20/2019, 10/12/2017 TDAP 05/22/2013 documented as of this encounter Social History Tobacco Use Types Packs/Day Years Used Date Never Smoker Smokeless Tobacco: Never Used Alcohol Use Drinks/Week oz/Week Comments Yes 0 Standard drinks or equivalent 0.0 social Sex Assigned at Date Recorded Not on file documented as of this encounter Last Filed Vital Signs Not on filedocumented in this encounter Miscellaneous Notes Telephone Encounter - May Mancilla RN - 04/16/2020 9:49 AM CSTReason for Disposition [1] Unable to urinate (or only a few drops) > 4 hours AND [2] bladder feels very full (e.g., palpable bladder or strong urge to urinate) Protocols used: URINARY [id number] Adult Triage Assessment Last Clinic Visit: 02/17/2020-Contraceptive management Primary Symptom:voiding little amounts of urine, peeing frequently, lower abd hurts when urinating Onset / Duration: symptoms started 2 days ago Location / Description: "I was having some discomfort 2 days ago, but I thought it was just my period" Pain / Severity: 5.5/10 pain, "It is manageable, but uncomfortable". Associated Symptoms: Denies blood to the urine, nausea or vomiting. She states when she pees, "only a little comes out, and it feels like I still need to pee, but nothing will come out." She states joeldder still feels full after she pees. Fever / Method: denies Hydration: Appetite has been normal. Drank 16 oz of water today. Last void 3 mins ago. She states her urine is the normal color. Denies smell to the urine. Treatment so far: Tylenol 500mg, 2 tabs taken an hour ago, has not helped the pain. Effect on ADL's: sig change LMP: on it now. Pre-existing condition / Immunocompromised: Asthma "I think I have a UTI. Im not sure if I should go somewhere to be seen, or if I should wait until Monday." per patient. I advised that she be seen today for evaluation. I informed her that the [facility] Urgent [facility] Clinics were closed today, but the Emergency Room was open today. She states she will have someone drive her [facility] ER. May Zaldivar elephone Encounter - May Mancilla RN - 04/16/2020 9:49 AM CSTRegarding: vaginal pain when urinating and stomach pain. Possible UTI patient not sure if needing jessie seen in ----- Message from Chanel Viveros sent at 04/16/2020 9:49 AM BUSINESS DIRECTOR ----- Norma Faulkner is a 24 year old female vaginal pain when urinating and stomach pain. Possible UTI patient not sure if needing to be seen inER documented in this encounter Plan of Treatment Date Type Specialty Care Team Description 05/20/2020 Office Visit [facility] Dixon Bean, [facility] [address] [place] [address] [phone] Health Maintenance Due Date Last Done Comments [...] on patient's age to complete this to [facility] documented as of this encounter Results Not on filedocumented in this encounter Insurance Payer Benefit Plan / Subscriber ID Effective Phone Address T e Group Dates [facility] [id number] 2018-Pres [address] Medic aid HEALTH CHOICE - HEALTH CHOICE ent [id number] 1 MANAGED MEDICAID [place], [place]ID [phone] documented as of this encounter Advance Directives Name Relationship Healthcare Agent Relationship Co mmunication Angy Trevino Mother Health Care Agent [phone] ( Home)
--- OUTSIDE RECORDS SUMMARY | 2020-06-26 22:19 | XMS REPORT | Summary of Care ---
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 documented as of this encounter Last Filed Vital Signs Vital Sign Reading Time Taken Comments Blood Pressure 130/85 04/23/2020 1:10 PM HAT AND CAP DRYING ROOM ATTENDANT Pulse 76 04/23/2020 1:10 PM HAT AND CAP DRYING ROOM ATTENDANT Temperature 36.6 C (97.9 F) 04/23/2020 1:10 PM HAT AND CAP DRYING ROOM ATTENDANT Respiratory Rate 16 04/23/2020 1:10 PM HAT AND CAP DRYING ROOM ATTENDANT Oxygen Saturation - - Inhaled Oxygen Concentration - - Weight 73.7 kg (162 lb 8 oz) 04/23/2020 1:10 PM HAT AND CAP DRYING ROOM ATTENDANT Height 165.1 cm (5' 5") 04/23/2020 1:10 PM HAT AND CAP DRYING ROOM ATTENDANT Body Mass Index 27.04 04/23/2020 1:10 PM HAT AND CAP DRYING ROOM ATTENDANT documented in this encounter Progress Notes Blanche Bean, WHCNP - 04/23/2020 12:45 PM CST Chief complaint: Chief Complaint Patient 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 PATRIC Sykes 04/23/2020 1:33 PM AND CAP DRYING ROOM ATTENDANT documented in this encounter Plan of Treatment Date Type Specialty Care Team Description 05/20/2020 Office Visit [facility]ell[facility] Dixon Bean WHCNP [address] [place], [place] [address] [phone] Name Type Priority Associated Diagnoses Order S [...] on patient's age to complete this to [facility] documented as of this encounter Procedures Procedure Name Priority Date/Time Associated Comments Diagnosis POCT URINALYSIS W/O Routine 04/23/2020 1:13 PM Dysuria R esults for this SPECIFIC GRAVITY HAT AND CAP DRYING ROOM ATTENDANT procedure a re in the results section. documented in this encounter Results POCT URINALYSIS W/O SPECIFIC GRAVITY (04/23/2020 1:13 PM HAT AND CAP DRYING ROOM ATTENDANT) Pathologist Sig nature POCT PH U 5 [...] / Subscriber ID Effective Phone Address T [facility] [id number] 2018-Pres [address] Medic aid HEALTH CHOICE - HEALTH CHOICE ent [id number] 1 MANAGED MEDICAID [place], [place] [phone] documented as of this encounter Advance Directives Name Relationship Healthcare Agent Relationship Co mmunication Angy Trevino Mother Health Care Agent [phone] ( Home)
--- OUTSIDE RECORDS SUMMARY | 2020-06-26 22:19 | XMS REPORT | Summary of Care ---
:1995 Author Organization [facility] Address [address] [place] [address] Care Team Providers Name Role Phone Blanche Bean [facility] Primary Care Provider [phone] Reason for Visit Reason Comments Refill Request Encounter Details Date Type Department Care Team Description 05/09/2020 [facility], Refill Request [address] [place] [address] [phone] [place], [place] [address] [phone] Allergies No Known Allergiesdocumented as of this encounter (statuses as of 05/11/2020) Medications Medication Sig Dispensed Refills Start Date End Date Status NUVARING 0.12-0.015 Insert 1 Each into 16 Each 6 04/27/2018 Active mg/24 hr vaginal vagina once every insertIndications: month. Insert Encounter for vaginally and leave prescription for in place for 3 nuvaring consecutive weeks, then remove for 1 week. NUVARING (NUVARING) Insert 1 Each into 1 Each 11 05/20/2019 Active 0.12-0.015 mg/24 hr vagina once [...] as of this encounter (statuses as of 05/11/2020) Active Problems Problem Noted Date UTI symptoms 04/23/2020 Pelvic pain 07/10/2019 Well woman exam 10/12/2017 Encounter for contraceptive management, unspecified ty pe 10/12/2017 Encounter for prescription for nuvaring 10/12/2017 Need for HPV vaccination 10/12/2017 Screening for STD (sexually transmitted disease) 10/12 Obesity (BMI 30-39.9) 10/12/2017 documented as of this encounter (statuses as of 05/11/2020) Resolved Problems Problem Noted Date Resolved Date Chlamydia 10/13/2017 05/20/2019 Overview: amparo neg Overweight (BMI 25.0-29.9) 10/12/2017 05/20/2019 General counseling for initiation of other contraceptive 10/12/2017 measures Vaginal yeast infection 12/04/2014 10/12/2017 documented as of this encounter (statuses as of 05/11/2020) Immunizations Name Administration Dates Next Due HPV9 [...] with No / Unsure 04/23/2020 1:08 PM LAUNCH CHECK OUT someone who was confirmed or suspected to have Coronavirus / COVID-19? documented as of this encounter Last Filed Vital Signs Not on filedocumented in this encounter Plan of Treatment Date Type Specialty Care Team Description 05/20/2020 Office Visit [facility] Dixon Bean, CNP [address] [phone] Health Maintenance Due Date Last Done Comments [...] on patient's age to complete this to [facility] documented as of this encounter Results Not on filedocumented in this encounter Visit Diagnoses Diagnosis Encounter for contraceptive management, unspecified type documented in this encounter Insurance Payer Benefit Plan / Subscriber ID Effective Phone Address T ype Group Dates [facility] [id number] 2018-Pres [address] Medic aid HEALTH CHOICE - HEALTH CHOICE ent [id number] 1 MANAGED MEDICAID [place], [place] [id number] documented as of this encounter Advance Directives Name Relationship Healthcare Agent Relationship Co mmunication Angy Trevino Mother Health Care Agent [phone] ( Home)
--- OUTSIDE RECORDS SUMMARY | 2020-06-26 22:20 | XMS REPORT | Summary of Care ---
:1995 Author Organization [facility] Address [address] [place] [id number] Care Team Providers Name Role Phone [facility] Provider [phone] Reason for Visit Reason Comments Well Woman Exam BC Encounter Details Date Type Department Care Team Description 06/03/2020 Office Visit [facility]- Blanche Bean for contraceptive management, unspecified type (Primary Dx); PATRIC Garzon control counseling; [address] Well woman exam; Street MARY A Over weight; [place], [place] [address] Elevated blood pressure reading without diagnosis of hypertension; [id number] Pelvic pain [phone] Allergies No Known Allergiesdocumented as of this encounter (statuses as of 06/03/2020) Medications Medication Sig Dispensed Refills Start End Date Status Date levonorgestrel-eth Take 1 tablet by 1 Package Active inyl estradiol mouth daily. 1 (SRONYX) 0.1-20 mg-mcg per tabletIndications: Encounter for contraceptive management, unspecified type NUVARING Insert 1 Each 16 Each 06/03/19 Discon tinued 0.12-0.015 mg/24 into vagina once 8 21 (Therapy hr vaginal every month. comple michelle) insertIndications: Insert vaginally Encounter for and leave in prescription for place for 3 nuvaring consecutive weeks, then remove for 1 week. NUVARING Insert 1 Each 1 Each 06/03/19 Discon tinued (NUVARING) into vagina once 9 21 (T herapy 0.12-0.015 mg/24 every month. completed) hr vaginal Insert vaginally insertIndications: and leave in Encounter for place for 3 contraceptive consecutive management, weeks, then unspecified type remove for 1 week. levonorgestrel-eth Take 1 tablet by 1 Package 2 05/22 Discontinued inyl estradiol mouth daily. 0 21 (R eorder) (SRONYX) 0.1-20 mg-mcg per tabletIndications: Encounter for contraceptive management, unspecified type documented as of this encounter (statuses as of 06/03/2020) Active Problems Problem Noted Date Elevated blood pressure reading without diagnosis of h ypertension 06/03/2020 UTI symptoms 04/23/2020 Pelvic pain 07/10/2019 Well woman exam 10/12/2017 Encounter for contraceptive management, unspecified ty pe 10/12/2017 Encounter for prescription for nuvaring 10/12/2017 Need for HPV vaccination 10/12/2017 Screening for STD (sexually transmitted disease) 10/12 Over weight 10/12/2017 documented as of this encounter (statuses as of 06/03/2020) Resolved Problems Problem Noted Date Resolved Date Chlamydia 10/13/2017 05/20/2019 Overview: amparo neg Overweight (BMI 25.0-29.9) 10/12/2017 05/20/2019 General counseling for initiation of other contraceptive 10/12/2017 measures Vaginal yeast infection 12/04/2014 10/12/2017 documented as of this encounter (statuses as of 06/03/2020) Immunizations Name Administration Dates Next Due HPV9 [...] been in contact with No / Unsure 06/03/2020 8:50 AM BACK GRINDER someone who was confirmed or suspected to have Coronavirus / COVID-19? documented as of this encounter Last Filed Vital Signs Vital Sign Reading Time Taken Comments Blood Pressure 133/95 06/03/2020 8:56 AM BACK GRINDER Pulse 81 06/03/2020 8:50 AM BACK GRINDER Temperature 37.1 C (98.7 F) 06/03/2020 8:50 AM BACK GRINDER Respiratory Rate 16 06/03/2020 8:50 AM BACK GRINDER Oxygen Saturation - - Inhaled Oxygen Concentration - - Weight 74.6 kg (164 lb 8 oz) 06/03/2020 8:50 AM BACK GRINDER Height 165.1 cm (5' 5") 06/03/2020 8:50 AM BACK GRINDER Body Mass Index 27.37 06/03/2020 8:50 AM BACK GRINDER documented in this encounter Patient Instructions Patient InstructionsLidia Lopez LVN - 06/03/2020 8:45 AM CST Patient Education Clinical Breast Exam Many health organizations recommend a yearly clinical breast exam. This exam may be done by a butcherette, family healthcare provider, nurse practitioner, nurse pipe fitter supervisor maintenance, or specially trained nurse. Yearly breast exams help tomake surethat breast conditions are found early. Your healthcare providers role A healthcare professional knows the tests and follow-up care needed if a problem is found. Your clinical exam is also a great time to ask questions about breast self-exams. You can find out if yourechecking your breasts in the best way. Or you may want to ask how , breast implants, or breast reduction surgery affect the way you should check your breasts. Diagnostic tests If a clinical exam reveals a breast change, you may have other tests to find out more. These tests may include: Mammography. A low-dose X-ray of your breast tissue. Ultrasound. An imaging test that uses sound waves to create images of your breast. Biopsy. A small amount of breast tissue is removed by needle or by a cut (incision). The tissue is then checked under a microscope. Guidelines for having clinical breast exams The [employer] recommends that starting at age 29, you should have a clinical breast exam every 1 to 3 years. After age 40, have a clinical breast exam each year. If youre at higher risk for breast cancer, you may need exams more often. Risk factors for breast cancer may include: Being over 50 or postmenopausal Having a family history of breast cancer Having the BRCA1 or BRCA2 gene mutation or certain other gene mutations Having more menstrual periods due to starting menstruation early(before age 12) or having a late menopause (after age 55) Having no pregnancies Having a first after age 30 Being obese Having a history of radiation treatment to your chest area Exposure to JAIMEE during your mother's Not being active Drinking too much alcohol Having dense breast tissue Taking hormone therapy after menopause Other health organizations have different recommendations. Talk with your healthcare provider about what is best for you. [facility] anupam reviewed this educational content on 08/21/201919997123-2403 [employer]. All rights reserved. This information is not intended as a substitute for professional medical care. Always follow your healthcare professional's instructions. Patient Education Breast Health: Breast Self-Awareness What is breast self-awareness? Breast self-awareness is knowing how your breasts normally look and feel. Your breasts change as yougo through different stages of your life. So its important to learn what is normal for your breasts. Knowing about your breasts helps you spot any changes in them right away. Tell your healthcare provider about any changes. Why is breast self-awareness important? Many experts now say that women should focus on breast self-awareness instead of doing a breast self-examination (BSE). These experts include the [employer] and the [employer]. Some experts even advise not teaching women to do a BSE. Thats because research hasnt shown a clear benefit to doing BSEs. Breast self-awareness is different than a BSE. It isnt about following a certain method and schedule. Its about knowing what's normal for your breasts. That way you can spot even small changes right away. If you see any changes, tell your healthcare provider. Changes to look for Call your healthcare provider if you find any changes in your breasts that worry you. These changes may be: A lump Nipple discharge other than breast milk, especially if it's bloody Swelling A change in size or shape Skin changes, such as redness, thickening, or dimpling of the skin Swollen lymph nodes in the armpit Nipple problems, such as pain or redness If you find a lump Call your provider if you find lumpiness in one breast. Also call if you feel something different inthe tissue or feel a definite lump. Sometimes lumpiness may be due to menstrual changes. But there may be reason for concern. Your provider may want to see you right away if you have: Nipple discharge that is bloody Skin changes on your breast, such as dimpling or puckering Its okay to be upset if you find a lump. Be sure to call your provider right away. Remember that most breast lumps are benign. This means they are not cancer. [facility] last reviewed this educational content on 09/20/201919991524-5134 [employer] [employer]. All rights reserved. This information is not intended as a substitute for professional medical care. Always follow your healthcare professional's instructions. Patient Education Prevention Guidelines,Women Ages 18 to 39 Screening tests and vaccines are an important part of managing your health. A screening test is doneto find possible disorders or diseases in people who don't have any symptoms. The goal is to find a disease early so lifestyle changes can be made and you can be watched more closely to reduce the riskof disease, or to detect it early enough to treat it most effectively. Screening tests are not considered diagnostic, but are used to determine if more testing is needed. Health counseling is essential, too. Below are guidelines for these, for women ages 18 to 39. Talk with your healthcare provider tomake sure youre up-to-date on what you need. Screening Who needs it How often Alcohol misuse All women in this age group At routine exams Blood pressure All women in this age group Yearly checkup if your blood pressure is normal Normal blood pressure is less than 120/80 mm Hg If your blood pressure reading is higher than normal, follow the advice of your healthcare provider Breast cancer All women in this age group should talk with their healthcare providers about the needfor clinical breast exams (CBE)1 Clinical breast exam every 3 years1 Cervical cancer Women ages 21 and older Women between ages 21 and 29 should have a Pap test every 3years; women between ages 30 and 65 are advised to have a Pap test plus an HPV test every 5 years Chlamydia Sexually active women ages 24 and younger, and women at increased risk for infection Every 3 years if you're at risk or have symptoms Depression All women in this age group At routine exams Diabetes mellitus, type 2 Adults with no symptoms who are overweight or obese and have 1 or more other risk factors for diabetes At least every 3 years. Also, testing for diabetes during after the 24th week. Gonorrhea Sexually active women at increased risk for infection At routine exams Hepatitis C Anyone at increased risk At routine exams HIV All women At routine exams3 Obesity All women in this age group At routine exams Syphilis Women at increased risk for infection should talk with their healthcare provider At routine exams Tuberculosis Women at increased risk for infection should talk with their healthcare provider Ask your healthcare provider Vision All women in this age group At least 1 complete exam in your 20s, and 2 in your 30s Vaccine Who needs it How often Chickenpox (varicella) All women in this age group who have no record of this infection or vaccine2 doses; the second dose should be given 4 to 8 weeks after the first dose Hepatitis A Women at increased risk for infection should talk with their healthcare provider 2 doses given at least 6 months apart Hepatitis B Women at increased risk for infection should talk with their healthcare provider 3 doses over 6 months; second dose should be given 1 month after the first dose; the third dose should be given at least 2 months after the second dose and at least 4 months after the first dose Haemophilus influenzae Type B (HIB) Women at increased risk for infection should talk with their healthcare provider 1 to 3 doses Human papillomavirus (HPV) All women in this age group up to age 26 3 doses; the second dose should be given 1 to 2 months after the first dose and the third dose given 6 months after the first dose Influenza (flu) All women in this age group Once a year Measles, mumps, rubella (MMR) All women in this age group who have no record of these infections orvaccines 1 or 2 doses Meningococcal Women at increased risk for infection should talk with their healthcare provider 1 ormore doses Pneumococcal conjugate vaccine (PCV13)and pneumococcal polysaccharidevaccine(PPSV23) Women atincreased risk for infection should talk with their healthcare provider PCV13: 1 dose ages 19 to 65(protects against 13 types of pneumococcal bacteria) PPSV23: 1 to2 doses through age 64, or 1 dose at 65 or older (protects against 23 types of pneumococcal bacteria) Tetanus/diphtheria/pertussis (Td/Tdap) booster All women in this age group Td every 10 years, or a one-time dose of Tdap instead of a Td booster after age 18, then Td every 10 years Counseling Who needs it How often BRCA gene mutation testing for breast and ovarian cancer susceptibility Women with increased risk for having gene mutation When your risk is known Breast cancer and chemoprevention Women at high risk for breast cancer When your risk is known Diet and exercise Women who are overweight or obese When diagnosed, and then at routine exams Domestic violence Women at the age in which they are able to have children At routine exams Sexually transmitted infection prevention Women who are sexually active At routine exams Skin cancer Prevention of skin cancer in fair-skinned adults At routine exams Use of tobacco and the health effects it can cause All women in this age group Every visit 1 According to the ACS, women ages 20 to 39 years should have a clinical breast exam (CBE) as part of their routine health exam every 3 years. Breast self-exams are an option for women starting in their 20s.But the U.S. Preventive Services Task Force (USPSTF) does not recommend CBE. 2 Those who are 18 years old and not up-to-date on their childhood vaccines should get all appropriate catch-up vaccines recommended by the CDC. 3 The USPSTF recommends that all people ages 15 to 65 years be screened for HIV and those younger orolder people at increased risk. The CDC recommends that everyone between the ages of 13 and 64 get tested for HIV at least once as part of routine health care. [facility] last reviewed this educational content on 02/19/201719998491-4087 [employer]. All rights reserved. This information is not intended as a substitute for professional medical care. Always follow your healthcare professional's instructions. Patient Education Understanding STIs When it comes to sex, nothing is risk-free. Any sexual contact with the penis, vagina, anus, or mouth can spread a sexually transmitted infection (STI). These include chlamydia, gonorrhea, herpes, HIV,and genital warts. STIs are also known as sexually transmitted diseases (STDs). The only sure way toprevent STIs is not having sex (abstinence). But there are ways to make sex safer. Use a latex condom each time you have sex. And choose your partner wisely. Use condoms for safer sex If you have sex, latex condoms provide the best protection against STIs. Latex condoms stop the exchange of body fluids that carry certain STIs. They also limit contact with affected skin. Be aware that a condom doesnt cover all skin. So affected skin that isn't covered can still transfer disease. But youre safer with a condom than without one. Use a condom even if you use other control. control methods such as the pill or IUD help prevent , but they don't protect against STIs. Choose the right condom Condoms made of latex prevent disease best. If youre allergic to latex, use polyurethane condoms instead. Male condoms fit over the penis. Female condoms line the vagina. Before buying a condom, read the label to be sure it prevents disease. Some novelty condoms dont. The right lubricant helps Buy lubricated condoms or use lubricant. This provides greater comfort and reduces the risk for condom breakage. Use only water-based lubricants. Dont use oil, lotion, or petroleum jelly. They can weaken the condom, causing breakage. Also, you may want to choose lubricants without nonoxynol-9. This spermicide may cause irritation. It can raise the risk for certain STIs. Use condoms correctly For condoms to work, they must be used the right way. Keep these tips in mind: Use a new latex condom each time you have sex. Slip the condom on the penis before any contact ismade. When ready to withdraw, hold the rim of the condom as the penis pulls out. This prevents the condom from slipping off. Check the expiration date before using a condom. Dont store condoms in places that can get hot, such as a car or a wallet that is carried in a back pocket. Get to know your partner Safer sex is a process. It involves getting to know your partner and making informed choices. Ask each other how many partners you have had in the past, and how many you have now. Find out if either ofyou has HIV or any other STI. If you decide to have sex, use a condom each time. Dont stop using condoms unless youre sure neither of you has other partners and youve both been tested to confirm you dont have HIV or other STIs. Then stay free of disease by having sex only with each other (monogamy). Keep your cool Dont let alcohol or drugs cloud your judgment. They could lead you to have sex with someone you wouldnt have chosen if you were sober. Or you might forget to use a condom. If you do plan to have sex, keep a latex condom with you. Dont wait until youre in the heat of passion to try to find one. Consider abstinence The only way to be sure you wont get an STI is to abstain from sex. Abstinence is a choice that many people make at some point in their life. Maybe you want to wait until you are sure youre readybefore you have sex. Maybe youd like a break from the responsibilities of sex for a while. Or maybe you just want to know your partner better before taking the next step. Abstinence is a choice you can make now to protect your future. [employer] last reviewed this educational content on 04/21/201819992474-1354 [employer]. [address] [place] [address], [place] [address]. All rights reserved. This information is not intended as a substitute for professional medical care. Always follow your healthcare professional's instructions. Patient Education Understanding HIV and AIDS It's important to know how HIV can get into your body and what happens once its there. Then youll be better prepared to protect yourself or others against this virus. A person with HIV can look and feel perfectly healthy. But that person can give HIV to others as soon as he or she is infected with the virus. Having unsafe or unprotected sex or sharing needles puts you at risk for HIV. Talk with your healthcare provider about ways to protect yourself or a loved one from getting HIV. How HIV infection progresses After HIV enters the body, it attacks the immune system in the stages below. A person with HIV can infect others once the virus gets into the blood. HIV with no symptoms. A person with HIV may have no symptoms for years. The only sign of infection may be a positive blood test for HIV 2 weeks to 3 months or later after HIV enters the body. HIV with symptoms. Some people develop an illness similar to mono (mononucleosis) 2 to 4 weeks after the virus enters the body. This is called acute retroviral syndrome. Symptoms may include swollen lymph glands, chills, fever, night sweats, weakness, weight loss, skin rashes, mouth ulcers, or sore t hroat. Symptoms may be mild or the person can feel quite sick. Even without treatment the symptoms almost always go away in a few days or up to 2 to 3 weeks. Then the person has no symptoms, often for years. But over time the immune system starts to get weaker and symptoms start appearing. People at this stage may have a yeast infection in the mouth (oral thrush), shingles, skin problems, pneumonia, diarrhea that keeps coming back, or weight loss. AIDS. AIDS is the most advanced stage of HIV infection, when the immune system is severely weakened.Certain rare diseases and cancers that normally would not occur, now can occur because the body can no longer fight them well enough. It is often these diseases that cause in people with AIDS. HIV may also directly attack the brain and nervous system. This causes seizures and loss of memory and body movement. It also affects many other parts of the body. This leads to problems such as anemia, low white blood cell count, diarrhea, belly pain, skin problems, and many others. How HIV enters the body HIV is carried in semen, vaginal fluid, blood, and breastmilk. During sex, HIV can enter the body. It gets in through the fragile tissue and linings, sores, or cuts in or around the vagina, penis, anus, and mouth. During drug use, tattooing, or body piercing, the virus can enter the blood through an infected needle. A mother who has HIV can infect her child during , childbirth, and . [facility] last reviewed this educational content on 10/20/201819991475-5957 [employer]. [address] [place] [address]. All rights reserved. This information is not intended as a substitute for professional medical care. Always follow your healthcare professional's instructions. Patient Education Eating Heart-Healthy Foods Eating has a big impact on your heart health. In fact, eating healthier can improve several of your heart risks at once. For instance, it helps you manage weight, cholesterol, and blood pressure. Here are ideas to help you make heart- healthy changes without giving up allthe foods and flavors you love. Getting started Talk with your healthcare provider about eating plans, such as the DASH or Mediterranean diet. You may also be referred to a dietitian. Change a few things at a time. Give yourself time to get used to a few eating changes before adding more. Work to create a tasty, healthy eating plan that you can stick to for the rest of your life. Goals for healthy eating Below are some tips to improve your eating habits: Limit saturated fats and trans fats. Saturated fats raise your levels of cholesterol, so keep these fats to a minimum. They are found in foods such as fatty meats, whole milk, cheese, and palm and coconut oils. Avoid trans fats because they lower good cholesterol as well as raise bad cholesterol. Trans fats are most often found in processed foods, such as pastries, cookies, pies, muffins, fried foods, stick margarines, and shortening. Reduce how much sodium (salt) you have. Eating too much salt may increase your blood pressure. Limit your sodium intake to 2,300 milligrams (mg) per day(the amount in 1 teaspoon of salt), or less if your healthcare provider recommends it. Dining out less often and eating fewer processed foods aretwo great ways to decrease the amount of salt you consume. At home, flavor your foods with other spices and herbs instead of salt. Managing calories. A calorie is a unit of energy. Your body sosa calories for fuel, but if you eat more calories than your body sosa, the extras are stored as fat. Your healthcare provider can help you create a diet plan to manage your calories. This will likely include eating healthier foods andgetting regular exercise. To help you track your progress, keep a diary to record what you eat and how often you exercise. Choose the right foods Aim to make these foods sara of your diet. If you have diabetes, you may have different recommendations than what is listed here: Fruits and vegetables provide plenty of nutrients without a lot of calories. At meals, fill half your plate with these foods. Choose between fresh, frozen, canned, or dried without added sauces, salt, or sugars. Split the other half of your plate between whole grains and lean protein. Whole grains are high in fiber and rich in vitamins and nutrients. Good choices include whole wheat bread, pasta, oats, and brown rice. Make at least half of your grains whole grains. Lean proteins give you nutrition with less fat. Good choices include fish, skinless chicken and turkey, and beans. Draining the fat from cooked ground meat is another way to reduce the amount of fatyou eat. Low-fat and nonfat dairy provide nutrients without a lot of fat. Try low-fat or nonfat milk, cheese, or yogurt. Healthy fats can be good for you in small amounts. These are unsaturated fats, such as olive oil,nuts, and fish. Try to have at least 2 servings per week of fatty fish, such as salmon, sardines, mackerel, rainbow trout, and albacore tuna. These contain omega-3 fatty acids, which are good for your heart. Flaxseed and walnuts are other sources of heart-healthy fats. More on heart-healthy eating Read food labels Healthy eating starts at the grocery store. Be sure to pay attention to food labels on packaged foods. Look for products that are high in fiber and protein, and low in saturated fat, added sugars, and sodium. Avoid products that contain trans fat. And pay close attention to serving size. For instance,if you plan to eat two servings, double all the numbers on the label. Prepare food right A mckinney part of healthy cooking is cutting down on added fat, sugar and salt. Look on the internet forlower-fat, lower-sodium recipes without a lot of added sugars. Also try these tips: Remove fat from meat and skin from poultry before cooking. Skim fat from the surface of soups and sauces. Broil, roast, boil, bake, steam, grill, or microwave food without added fats. Choose ingredients that spice up your food without adding calories, fat, sugar, or sodium. Try these items: horseradish, hot sauce, lemon, mustard, nonfat salad dressings, and vinegar. Small amountsof olive oil-based vinaigrettes are OK, too. For salt-free herbs and spices, try basil, cilantro, cinnamon, cumin, paprika, pepper, and annabelle. [employer] last reviewed this educational content on 11/20/201919994221-3694 The [employer]. All rights reserved. This information is not intended as a substitute for professional medical care. Always follow your healthcare professional's instructions. Patient Education Clinical Breast Exam Many health organizations recommend a yearly clinical breast exam. This exam may be done by a butcherette, family healthcare provider, nurse practitioner, nurse pipe fitter supervisor maintenance, or specially trained nurse. Yearly breast exams help tomake surethat breast conditions are found early. Your healthcare providers role A healthcare professional knows the tests and follow-up care needed if a problem is found. Your clinical exam is also a great time to ask questions about breast self-exams. You can find out if yourechecking your breasts in the best way. Or you may want to ask how , breast implants, or breast reduction surgery affect the way you should check your breasts. Diagnostic tests If a clinical exam reveals a breast change, you may have other tests to find out more. These tests may include: Mammography. A low-dose X-ray of your breast tissue. Ultrasound. An imaging test that uses sound waves to create images of your breast. Biopsy. A small amount of breast tissue is removed by needle or by a cut (incision). The tissue is then checked under a microscope. Guidelines for having clinical breast exams The [place] [employer]st[employer] Gynec[employer] recommends that starting at age 29, you should have a clinical breast exam every 1 to 3 years. After age 40, have a clinical breast exam each year. If youre at higher risk for breast cancer, you may need exams more often. Risk factors for breast cancer may include: Being over 50 or postmenopausal Having a family history of breast cancer Having the BRCA1 or BRCA2 gene mutation or certain other gene mutations Having more menstrual periods due to starting menstruation early(before age 12) or having a late menopause (after age 55) Having no pregnancies Having a first after age 30 Being obese Having a history of radiation treatment to your chest area Exposure to JAIMEE during your mother's Not being active Drinking too much alcohol Having dense breast tissue Taking hormone therapy after menopause Other health organizations have different recommendations. Talk with your healthcare provider about what is best for you. [employer] reviewed this educational content on 08/21/201919999886-1983 The [employer]. All rights reserved. This information is not intended as a substitute for professional medical care. Always follow your healthcare professional's instructions. Patient Education Understanding USDA MyPlate The USDA has guidelines to help you make healthy food choices. These are called MyPlate. MyPlate shows the food groups that make up healthy meals using the image of a place setting. Before you eat, think about the healthiest choices for what to put on your plate or in your cup or bowl. To learn more about building a healthy plate, visit www.choosemyplate.gov. The food groups Fruits. Any fruit or 100% fruit juice counts as part of the Fruit Group. Fruits may be fresh, canned, frozen, or dried, and may be whole, cut-up, or pureed. Make 1/2 of your plate fruits and vegetables. Vegetables. Any vegetable or 100% vegetable juice counts as a member of the Vegetable Group. Vegetables may be fresh, frozen, canned, or dried. They can be served raw or cooked and may be whole, cut-up, or mashed. Make 1/2 of your plate fruits and vegetables. Grains. All foods made from grains are part of the Grains Group. These include wheat, rice, oats,cornmeal, and barley. Grains are often used to make foods such as bread, pasta, oatmeal, cereal, tortillas, and grits. Grains should be no more than 1/4 of your plate. At least half of your grains should be whole grains. Protein. This group includes meat, poultry, seafood, beans and peas, eggs, processed soy products(such as tofu), nuts (including nut butters), and seeds. Make protein choices no more than 1/4 of your plate. Meat and poultry choices should be lean or low fat. Dairy. The Dairy Group includes all fluid milk products and foods made from milk that contain calcium, such as yogurt and cheese. (Foods that have little calcium, such as cream, butter, and cream cheese, are not part of this group.) Most dairy choices should be low-fat or fat-free. Oils. Oils aren't a food group, but they do contain essential nutrients. However it's important to watch your intake of oils. These are fats that are liquid at room temperature. They include canola,corn, olive, soybean, vegetable, and sunflower oil. Foods that are mainly oil include mayonnaise, certain salad dressings, and soft margarines. You likely already get your daily oil allowance from the foods you eat. Things to limit Eating healthy also means limiting these things in your diet: Salt (sodium). Many processed foods have a lot of sodium. To keep sodium intake down, eat fresh vegetables, meats, poultry, and seafood when possible. Purchase low-sodium, reduced-sodium, or np-gzga-rjjkd food products at the store. And don't add salt to your meals at home. Instead, season them with herbs and spices such as dill, oregano, cumin, and paprika. Or try adding flavor with lemon or limezest and juice. Saturated fat. Saturated fats are most often found in animal products such as beef, pork, and chicken. They are often solid at room temperature, such as butter. To reduce your saturated fat intake, choose leaner cuts of meat and poultry. And try healthier cooking methods such as grilling, broiling,roasting, or baking. For a simple lower-fat swap, use plain nonfat yogurt instead of mayonnaise whenmaking potato salad or macaroni salad. Added sugars. These are sugars added to foods. They are in foods such as ice cream, candy, soda, fruit drinks, sports drinks, energy drinks, cookies, pastries, jams, and syrups. Cut down on added sugars by sharing sweet treats with a family member or friend. You can also choose fruit for dessert, and drink water or other unsweetened beverages. [employer] last reviewed this educational content on 10/21/201919998346-8295 The [employer]. All rights reserved. This information is not intended as a substitute for professional medical care. Always follow your healthcare professional's instructions. 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 The patient's primary symptoms include pelvic pain. This is a recurrent problem. The current episode started more than 1 month ago. The problem occurs intermittently. The problem has been waxing and waning. The pain is mild. The problem affects both sides. She is not . She wears cotton underwear. Associated symptoms include cramps. Nothing aggravates the symptoms. She has tried NSAIDs for the symptoms. The treatment provided mild relief. It is unknown whether or not her partner has an STD. She uses oral contraceptives for contraception. Patient reports that prior to today's visit, her form of control was oral contraceptive. After this visit, patient's form of control will be oral contraceptive. Her menstrual history has been regular. Patient reports sexually active. HPI: the patient is here today for well woman exam. She reports she is doing well today but does however report pelvic discomfort for the past 2 months. She reports she is not sure if it is in relationto her menses. She states she has tried midol otc but has only given her minimal relief. She denies having any new sexual partners on today and denies the need for sti testing today. She reports she iscurrently on ocp for control and reports she is pleased with her method for control. Pt (denies) current or past physical, sexual or emotional abuse. Histories OB History Para Term AB Living 2 2 2 2 SAB TAB Ectopic Multiple Live Births 2 # Outcome Date GA Lbr Sanket/2nd Weight Sex Delivery Anes PTL Lv 2 01/07/13 36w0d 5 lb (2.268 kg) F , L MAAYNK 1 08/31/11 34w0d 4 lb 11 oz [...] No Sexual activity: Yes Partners: Male control/protection: Pill Comment: last sexua intercourse 05/30/2020 Lifestyle Physical activity Days per week: Not [...] Activity Sexual Activity Yes Partners: Male control/protection: Pill Comment: last sexua intercourse 05/30/2020 Labs No new labs and Office Visit on 04/23/2020 Component Date Value POCT PH U 04/23/2020 5 POCT U LEUK EST 04/23/2020 Trace POCT U NIT 04/23/2020 Neg POCT U PROT 04/23/2020 Trace POCT U GLU 04/23/2020 Neg POCT U KETONE 04/23/2020 Neg POCT U BLD 04/23/2020 Trace URINE CULTURE 04/23/2020 10,000 - 100,000 CFU/mL mixed aerobic organisms - suggests endogenous microbial contamination Radiology No new radiology. Allergies Norma has No Known Allergies. Medications Norma has a current medication list which includes the following prescription(s): levonorgestrel-ethinyl estradiol. Review of Systems Constitutional: Negative. HENT: Negative. Eyes: Negative. Respiratory: Negative. Breasts: Negative. Cardiovascular: Negative. Gastrointestinal: Negative. Genitourinary: Positive for pelvic pain. Musculoskeletal: Negative. Skin: Negative. Neurological: Negative. Psychiatric/Behavioral: Negative. Endocrine: Endocrine negative BP (!) 133/95 (BP Location: Right arm, Patient Position: Sitting, BP CUFF SIZE: Adult Medium) | Pulse 81 | Temp 37.1 C (98.7 F) (Oral) | Resp 16 | Ht 5' 5" (1.651 m) | Wt 164 lb 8 oz (74.6 kg) | LMP 05/14/2020 (Approximate) | BMI 27.37 kg/m Pregravid BMI: Could not be calculated Physical Exam Vitals reviewed. Constitutional: She is oriented to person, place, and time. She appears well- developed and well-nourished. Her body habitus is normal. Cardiovascular: Regular rate and rhythm. No peripheral edema present. Pulmonary/Chest: Normal inspiratory effort. Neuro/Psychiatric: She has a normal mood and affect. She is oriented to person, place, and time. Skin: Skin normal. No lesion, no rash and no ulceration present. 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 for bp check Return to clinic in 1 year for WWE Rubella/VZV: will seek health dept BMI: 27 Td: 2013 Pap Smear: 2018 Gardasil: completed Mammogram/Guaiac/Colonoscopy: na Encounter for contraceptive management, unspecified type (primary encounter diagnosis) Comment: as ordered Plan: levonorgestrel-ethinyl estradiol (SRONYX) 0.1-20 mg-mcg per tablet control counseling Comment: as ordered Plan: POCT TEST Well woman exam Comment: routine Plan: as needed mgmt Over weight Comment: see bmi Plan: BMI discussed, appropriate weight gain, sensible diet, and exercise, increased fiber and waterintake and protein low in fat. Encouraged exercise for 30 min everyday; begin regimen with caution to prevent injury. Encouraged to decrease BMI to <25. Educated on how obesity and smoking can affect future and health. 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 Elevated blood pressure reading without diagnosis of hypertension Comment: asymptomatic on today Plan: Patient encouraged to make lifestyle modifications, limit salt intake, weight loss encouraged,exercise 30min/day 4-5 times a week. Healthy diet high in fruits, veggies, whole grains, low-fat dairy, moderate alcohol consumption Pelvic pain Comment: reports Plan: patient advised on otc remedies, she verbalized understanding This visit did not involve counseling and coordination that comprised more than 50% of the visit time PATRIC Sykes 06/03/2020 9:22 AM . Yaquelin Salgado RN - 06/03/2020 8:45 AM CST24 year old presents to the clinic for wwe. 1) Previous BCM: OCP 2) Desired BCM: OCP 3) LMP: 05/14/2020 4) Last Risingsun: 05/30/2020 5) Last Pap: 05/20/2019 Results: Negative 6) Tdap: 2014 7) Gardasil: Completed 8) C/O: Patient having cramping 9) Patient denies history of physical, emotional, or sexual abuse. Patient states that she currently feels safe at home. YAQUELIN ARREOLA RN 06/03/2020 9:02 AM GRINDER documented in this encounter Plan of Treatment Date Type Specialty Care Team Description 06/17/2020 Office Visit OB Satellites Dixon Bean, [facility] [address] [address] [phone] Health Maintenance Due Date Last Done Comments HPV VACCINES (3 - 3-dose 08/01/2020 05/20/2019, Postpon ed from 09/19/2019 series) 10/12/2017 (Alternative Abdiaziz delines) INFLUENZA VACCINE (#1) 2020 Postponed from 01/21/2020 (Refused) Depression Screening 06/03/2021 06/03/2020 VARICELLA VACCINES (1 of 2 - 06/03/2021 Pos tponed from 1994 2-dose childhood series) (Altern ative Guidelines) PAP SMEAR 05/20/2022 05/20/2019, 05/20/2019, 12/02/2014 DTaP,Tdap,and Td Vaccines (2 05/22/2023 05/22/2013 - Td) PNEUMOCOCCAL 0-64 YEARS Aged Out No longe r eligible based COMBINED SERIES on patient's age to complete this to [facility] documented as of this encounter Procedures Procedure Name Priority Date/Time Associated Diagnosis Comme nts POCT TEST Routine 06/03/2020 8:58 AM control Results for this BACK GRINDER counseling procedure are i n the results section. documented in this encounter Results POCT TEST (06/03/2020 8:58 AM BACK GRINDER) Pathologist Sig nature POCT PREG Negative On board controls acceptable Yes with C Line POCT PREG LOT # POCT PREG TEST DATE Specimen Urine - URINE, CLEAN CATCH documented in this encounter Visit Diagnoses Diagnosis Encounter for contraceptive management, unspecified type - Primary Over weight Overweight Elevated blood pressure reading without diagnosis of hypertension Pelvic pain Unspecified symptom associated with fema le genital organs documented in this encounter Insurance Payer Benefit Plan / Subscriber ID Effective Phone Address T ype Group Dates [facility] [id number] [facility]-Pres [address] Medic aid HEALTH CHOICE - HEALTH CHOICE ent [id number] 1 MANAGED MEDICAID [place], [place] MED[place]ID [phone] documented as of this encounter Advance Directives Name Relationship Healthcare Agent Relationship Co mmunication Angy Trevino Mother Health Care Agent [phone] ( Home)
--- OUTSIDE RECORDS SUMMARY | 2020-06-26 22:20 | XMS REPORT | Summary of Care ---
:1995 Author Organization [facility] Address [address] [place] [id number] Care Team Providers Name Role Phone [facility] Provider [phone] Reason for Visit Reason Comments Well Woman Exam BC Encounter Details Date Type Department Care Team Description 06/03/2020 Office Visit [facility]- Blanche Bean for contraceptive management, unspecified type (Primary Dx); PATRIC Garzon control counseling; [address] Well woman exam; Street MARY A Over weight; [place], [place] [address] Elevated blood pressure reading without diagnosis of hypertension; [id number] Pelvic pain [phone] Allergies No Known Allergiesdocumented as of this [...] with No / Unsure 06/03/2020 8:[address] SQL DEVELOPER someone who was confirmed or suspected to have Coronavirus / COVID-19? documented as of this encounter Last Filed Vital Signs Vital Sign Reading Time Taken Comments Blood Pressure 133/95 06/03/2020 8:[address] SQL DEVELOPER Pulse 81 06/03/2020 8:[address] SQL DEVELOPER Temperature 37.1 C (98.7 F) 06/03/2020 8:[address] SQL DEVELOPER Respiratory Rate 16 06/03/2020 8:[address] SQL DEVELOPER Oxygen Saturation - - Inhaled Oxygen Concentration - - Weight 74.6 kg (164 lb 8 oz) 06/03/2020 8:[address] SQL DEVELOPER Height 165.1 cm (5' 5") 06/03/2020 8:[address] SQL DEVELOPER Body Mass Index 27.37 06/03/2020 8:[address] SQL DEVELOPER documented in this encounter Patient Instructions Patient InstructionsLidia Lopez LVN - 06/03/2020 8:45 AM CST Patient Education Clinical Breast Exam Many health organizations recommend a yearly clinical breast exam. This exam may be done by a help desk representative, family healthcare provider, nurse practitioner, nurse electronics engineer, or specially trained nurse. Yearly breast exams [...] Guidelines for having clinical breast exams The [place] [employer]st[employer]ians and Gynecologists recommends that [...] provider about what is best for you. [employer] anupam reviewed this educational content on 08/21/201919994366-4984 The [employer]. All rights reserved. This information is not [...] breast self-examination (BSE). These experts include the [place] [employer] and the [place] [employer] Obstetricians and Gynecologists. Some experts [...] benign. This means they are not cancer. [employer] last reviewed this educational content on 09/20/201919995880-1852 The [employer], [employer]. All rights reserved. This information is not [...] once as part of routine health care. [employer] last reviewed this educational content on 02/19/201719991656-2292 The [employer]. All rights reserved. This information is not [...] can make now to protect your future. [employer] last reviewed this educational content on 04/21/201819992204-2248 The [employer]. [address] [place] [address], [place] [address]. All rights reserved. This information is not [...] her child during , childbirth, and . [employer] last reviewed this educational content on 10/20/201819996690-8445 The [employer]. [address] [place] [address]. All rights reserved. This information is not [...] cilantro, cinnamon, cumin, paprika, pepper, and annabelle. [employer] last reviewed this educational content on 11/20/201919995507-7709 The [employer]. All rights reserved. This information is not intended as a substitute for professional medical care. Always follow your healthcare professional's instructions. Patient Education Clinical Breast Exam Many health organizations recommend a yearly clinical breast exam. This exam may be done by a help desk representative, family healthcare provider, nurse practitioner, nurse electronics engineer, or specially trained nurse. Yearly breast exams [...] Guidelines for having clinical breast exams The [place] [employer] Obstetricians and Gynecologists recommends that [...] provider about what is best for you. [employer] reviewed this educational content on 08/21/201919991002-3052 The [employer]. All rights reserved. This information is not [...] seafood when possible. Purchase low-sodium, reduced-sodium, or zh-psre-avwbc food products at the store. And don't [...] and drink water or other unsweetened beverages. [employer] last reviewed this educational content on 10/21/201919992885-7744 The [employer]. All rights reserved. This information is not intended as a substitute for professional medical care. Always follow your healthcare professional's instructions. 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 Elevated blood pressure reading without diagnosis [...] BCM: OCP 3) LMP: 05/14/2020 4) Last Haslet: 05/30/2020 5) Last Pap: 05/20/2019 Results: Negative 6) Tdap: 2014 7) Gardasil: Completed 8) C/O: Patient having cramping 9) Patient denies history of physical, emotional, or sexual abuse. Patient states that she currently feels safe at home. YAQUELIN ARREOLA RN 06/03/2020 9:[address] SQL DEVELOPER documented in this encounter Plan of Treatment Date Type Specialty Care Team Description 06/17/2020 Office Visit OB Satellites Dixon Bean, [facility] [address] [address] [phone] Health Maintenance Due Date Last Done Comments [...] on patient's age to complete this to [facility] documented as of this encounter Procedures Procedure Name Priority Date/Time Associated Diagnosis Comme nts POCT TEST Routine 06/03/2020 8:58 AM control Results for this SENIOR ORACLE [address] SQL DEVELOPER counseling procedure are i n the results section. documented in this encounter Results POCT TEST (06/03/2020 8:[address] SQL DEVELOPER) Pathologist Sig nature POCT PREG Negative On [...] Effective Phone Address T ype Group Dates [facility] [id number] 2018-Pres [address] Medic aid HEALTH CHOICE - HEALTH CHOICE ent [id number] 1 MANAGED MEDICAID [place], [place] [phone] documented as of this encounter Advance Directives Name Relationship Healthcare Agent Relationship Co mmunication Angy Trevino Mother Health Care Agent [phone] ( Home)
--- OUTSIDE RECORDS SUMMARY | 2020-06-26 22:20 | XMS REPORT | Summary of Care ---
:1995 Author Organization [facility] - Health Address [address] [place] [address] Care Team Providers Name Role Phone Arthurdavid Blanche Bertrand [facility] Provider [phone] Encounter Details Date Type Department Care Team Description 06/03/2020 Orders Only [facility] Doctor Unassigned, No [address] [facility] [place] [address] [address] [id number] Allergies No Known Allergiesdocumented as of this encounter (statuses as of 06/03/2020) Medications Medication Sig Dispensed Refills Start Date [...] of 06/03/2020) Active Problems Problem Noted Date UTI symptoms [...] Treatment Date Type Specialty Care Team Description 06/03/2020 [facility] Visit [facility] [address] [address] 15 [phone] Health Maintenance Due Date Last Done Comments VARICELLA VACCINES (1 of 2 - 1994 2-dose childhood series) Depression Screening 2005 HPV VACCINES (3 - 3-dose 09/19/2019 05/20/2019, series) 10/12/2017 INFLUENZA VACCINE (#1) 2020 PAP SMEAR 05/20/2022 05/20/2019, 05/20/2019, 12/02/2014 DTaP,Tdap,and Td Vaccines (2 05/22/2023 05/22/2013 - Td) PNEUMOCOCCAL 0-64 YEARS Aged Out No longe r eligible based COMBINED SERIES on patient's age to complete this to [facility] documented as of this encounter Procedures Procedure Name Priority Date/Time Associated Diagnosis Comme nts ASSIGNMENT OF BENEFITS Routine 06/03/2020 8:39 AM VICE 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 Medic aid HEALTH CHOICE - [place]ALTH CHOICE [place] [id number] 1 [facility] MEDICAID [place] [id number] documented as of this encounter Advance Directives Name Relationship Healthcare Agent Relationship Co mmunication Angy Trevino Mother Health Care Agent [phone] ( Home)
[2020-06-26] MEDS ORDERED: ACETAMINOPHEN 500 MG TAB ONE (23:34)
--- NOTE | 2020-06-26 23:47 | EDPHYS ---
Physician Documentation [facility] Name: Norma Faulkner Age: 24 yrs Sex: Female : 1995 Arrival Date: 06/26/2020 Time: 22:18 Bed 17 Private MD: Hugo Flower E ED Physician Hung Sherman HPI: 06/26 23:15 This 24 yrs old Female presents to ER via Wheelchair with complaints of Fall cp Injury, Leg Pain. 23:15 The patient presents with an injury, pain, that is acute. The complaints affect the cp right ankle. 23:15 Onset: The symptoms/episode began/occurred today. Context: The patient can partially cp bear weight on the affected extremity. misstep and stumble while walking down stairs at apartment complex. Associated signs and symptoms: Pertinent negatives: calf tenderness, numbness, weakness. Modifying factors: the symptoms are aggravated by weight bearing, movement. 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 - Social history:: Smoking status: Patient denies any tobacco usage or history of. ROS: 23:20 Eyes: Negative for injury, pain, redness, and discharge. cp 23:20 Constitutional: Negative for body aches, chills, fever. 23:20 Neck: Negative for pain with movement, pain at rest, stiffness. 23:20 Respiratory: Negative for cough, shortness of breath, wheezing. 23:20 Abdomen/GI: Negative for abdominal pain, nausea, vomiting, and diarrhea. 23:20 Back: Negative for pain at rest, pain with movement. 23:20 MS/extremity: Positive for pain, tenderness, of the right ankle, Negative for decreased range of motion, deformity. 23:20 Neuro: Negative for headache, weakness. 23:20 All other systems are negative. Exam: 23:25 Constitutional: The patient appears in no acute distress, alert, awake, well developed, cp well nourished. 23:25 Head/Face: Normocephalic, atraumatic. cp 23:25 Neck: ROM/movement: is normal, is supple, without pain, no range of motions limitations. 23:25 Cardiovascular: Rate: normal. 23:25 Respiratory: the patient does not display signs of respiratory distress, Respirations: normal, no use of accessory muscles. 23:25 Back: pain, is absent, ROM is normal. 23:25 Musculoskeletal/extremity: Extremities: grossly normal except: noted in the right ankle: pain, tenderness, There is no evidence of decreased ROM, deformity, ROM: limited passive range of motion due to pain, in the right ankle, Perfusion: the extremity is normally perfused throughout, Sensation intact. Achilles tendon palpated and intact, no pain to palpation noted proximal right fibula and/or base of right fifth metatarsal. Vital Signs: 22:36 BP 137 / 96; Pulse 68; Resp 16; Temp 98.5(TE); Pulse Ox 100% on R/A; Weight 74.39 kg lp1 (R); Height 5 ft. 0 in. (152.40 cm); Pain 7/10; 23:20 BP 118 / 85; Pulse 71; Resp 16; Pulse Ox 99% ; sf 22:36 Body Mass Index 32.03 (74.39 kg, 152.40 cm) lp1 MDM: 22:48 Patient medically screened. cp 23:43 Test interpretation: by ED physician or midlevel provider: xrays of right ankle cp negative for fracture. 23:45 Data reviewed: vital signs, nurses notes, radiologic studies, plain films. cp 23:45 Differential diagnosis: fracture, sprain, dislocation. Counseling: I had a detailed cp discussion with the patient and/or guardian regarding: the historical points, exam findings, and any diagnostic results supporting the discharge/admit diagnosis, radiology results, to return to the emergency department if symptoms worsen or persist or if there are any questions or concerns that arise at home. 06/26 23:02 Order name: XRAY Ankle RIGHT 3 view cp 06/26 23:41 Order name: Splint - Ankle: Aircast; Complete Time: 00:40 cp 06/26 23:41 Order name: Crutches; Complete Time: 00:40 cp Administered Medications: 23:20 Drug: Tylenol 1000 mg Route: PO; sf Disposition: 06/27 07:09 Co-signature as Attending Physician, Hung Sherman MD. [email or web address] Disposition: 06/26/20 23:46 Discharged to Home. Impression: Pain in right ankle and joints of right foot. - Condition is Stable. - Discharge Instructions: Elastic Bandage and RICE, Ankle Sprain. - Prescriptions for Ibuprofen 800 mg Oral Tablet - take 1 tablet by ORAL route every 8 hours As needed take with food; 30 tablet. - Medication Reconciliation Form, Thank You Letter, Antibiotic Education, Prescription Opioid Use form. - Follow up: Private Physician; When: 5 - 6 days; Reason: Worsening of condition. - Problem is new. - Symptoms have improved. Signatures: Dispatcher [employer] EDMS Fadia Lala RN RN 1 Joaquin Strong PA PA Hung Harris MD MD [facility] Torito Espinosa RN RN sf Corrections: (The following items were deleted from the chart) 06/26 23:31 22:40 Home Meds: None; lp1 06/27 00:43 06/26 23:46 06/26/2020 23:46 Discharged to Home. Impression: Pain in right ankle and sf joints of right foot. Condition is Stable. Forms are Medication Reconciliation Form, Thank You Letter, Antibiotic Education, Prescription Opioid Use. Follow up: Private Physician; When: 5 - 6 days; Reason: Worsening of condition. Problem is new. Symptoms have improved. cp 06/27 23:00 06/26 23:10 MS/extremity: Positive for pain, tenderness, of the right ankle, Negative cp for decreased range of motion, deformity, cp 06/27 23:00 06/26 23:10 Constitutional: Negative for body aches, chills, fever, cp cp 06/27 23:00 02 23:10 Respiratory: Negative for cough, shortness of breath, wheezing, cp cp 06/27 23:00 02 23:10 Abdomen/GI: Negative for abdominal pain, nausea, vomiting, and diarrhea, cp cp 06/27 23:00 02 23:10 Eyes: Negative for injury, pain, redness, and discharge, cp cp 06/27 23: 02 23:10 Neck: Negative for pain with movement, pain at rest, stiffness, cp cp 06/27 23:10 Neuro: Negative for headache, weakness, cp cp 06/27 23 02 23:10 Back: Negative for pain at rest, pain with movement, cp cp 06/27 02 23:10 All other systems are negative, cp cp
--- NOTE | 2020-06-26 23:47 | ER ---
Nurse's Notes [facility] Name: Norma Faulkner Age: 24 yrs Sex: Female : 1995 Arrival Date: 06/26/2020 Time: 22:18 Bed 17 Private MD: Hugo Flower E Diagnosis: Pain in right ankle and joints of right foot Presentation: 06/26 22:32 Acuity: WINDY 4 1 22:36 Chief complaint: Patient states: Reports fall down about 4-[address] [facility] apartment; states pain to right lateral ankle and lower leg; denies any other injuries at this time; unable to bear weight. Coronavirus screen: Client denies travel out of the [place] in the last 14 days. At this time, the client does not indicate any symptoms associated with coronavirus-19. Ebola Screen: No symptoms or risks identified at this time. Initial Sepsis Screen: Does the patient meet any 2 criteria? No. Patient's initial sepsis screen is negative. Does the patient have a suspected source of infection? No. Patient's initial sepsis screen is negative. Risk Assessment: Do you want to hurt yourself or someone else? Patient reports no desire to harm self or others. Onset of symptoms was June 26, 2020 at 21:30. 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 - Social history:: Smoking status: Patient denies any tobacco usage or history of. Screenin:40 Abuse screen: Denies threats or abuse. Denies injuries from another. Nutritional lp1 screening: No deficits noted. Tuberculosis screening: No symptoms or risk factors identified. Fall Risk None identified. Assessment: 23:20 General: Appears in no apparent distress. comfortable, Behavior is calm, cooperative, sf appropriate for age. Pain: Complains of pain in right Achilles, right lateral malleolus and right medial malleolus Pain does not radiate. Pain currently is 5 out of 10 on a pain scale. at worst was 10 out of 10 on a pain scale. Alleviated by rest, Aggravated by increased activity, weight bearing. Neuro: No deficits noted. Level of Consciousness is awake, alert, obeys commands, Oriented to person, place, time, situation, Appropriate for age. Cardiovascular: No deficits noted. Capillary refill < 3 seconds Patient's skin is warm and dry. Pulses are palpable in right posterior tibial artery and right dorsalis pedis artery. Respiratory: No deficits noted. Airway is patent Respiratory effort is even, unlabored, Respiratory pattern is regular, symmetrical. Musculoskeletal: Range of motion: limited in right ankle Tenderness present in right Achilles, right lateral malleolus and right medial malleolus Reports pain in right ankle since missing a step at her apartment this evening.. Vital Signs: 22:36 BP 137 / 96; Pulse 68; Resp 16; Temp 98.5(TE); Pulse Ox 100% on R/A; Weight 74.39 kg lp1 (R); Height 5 ft. 0 in. (152.40 cm); Pain 7/10; 23:20 BP 118 / 85; Pulse 71; Resp 16; Pulse Ox 99% ; sf 22:36 Body Mass Index 32.03 (74.39 kg, 152.40 cm) lp1 ED Course: 22:18 Patient arrived in ED. am2 22:18 Hugo Flower MD is Private Physician. am2 22:32 Triage completed. lp1 22:34 Torito Espinosa RN is Primary Nurse. sf 22:40 Arm band placed on. lp1 22:40 Patient has correct armband on for positive identification. lp1 22:43 Joaquin Strong PA is PHCP. cp 22:43 Hung Sherman MD is Attending Physician. cp 23:38 X-ray(s) taken. sf 23:39 XRAY Ankle RIGHT 3 view In Process Unspecified. EDMS 06/27 00:15 No provider procedures requiring assistance completed. Patient did not have IV access sf during this emergency room visit. Crutch training done. Air stirrup applied to right ankle. Administered Medications: 06/26 23:20 Drug: Tylenol 1000 mg Route: PO; sf Outcome: 23:46 Discharge ordered by . mason 06/27 00:38 Discharge instructions given to patient, Instructed on discharge instructions, sf medication usage, crutch walking, Prescriptions given X 1. 00:41 Discharged to home ambulatory, with crutches. sf 00:41 Condition: stable 00:43 Patient left the ED. sf Signatures: Dispatcher [employer] EDMS Fadia Lala, RN RN lp1 Joaquin Strong, CONNIE PA Taya Perez Steven, RN RN sf Corrections: (The following items were deleted from the chart) 06/26 23:31 22:40 Home Meds: None; [email or web address] sf
[2020-06-27 00:58] VITALS: BP 118/85; O2SAT 99
[2020-06-27 00:59] VITALS: TEMP 98.5
--- NOTE | 2020-06-27 08:35 | RAD REPORT ---
EXAM DESCRIPTION: RAD - Ankle Right 3 View - 06/26/2020 11:40 pm CLINICAL HISTORY: PAIN COMPARISON: None FINDINGS: No fracture, dislocation or periosteal reaction. No joint effusion seen. No joint space na rrowing. No soft tissue abnormality. IMPRESSION: Negative right ankle
== END 2020-06-27 00:43 | disposition home or self-care (01) ==
LOC: ER 22:16
DX: M25.571 Pain in right ankle and joints of right foot (principal); J45.909 Unspecified asthma, uncomplicated
CPT/HCPCS: 99284

== ENCOUNTER 2020-12-17 00:19 | Emergency (ER) | payer OTHER ==
--- OUTSIDE RECORDS SUMMARY | 2020-12-17 00:23 | XMS REPORT | Continuity of Care Document ---
:1995 Author Organization [facility] t Address [address] [place] [address] Care Team Providers Name Role Phone Pcp MD, Brittany Primary Care Physician Unavailable MARCELLA BONNER Attending Clinician Unavailable Marcella Bonner MD Attending Clinician Rand Bills Attending Clinician Doctor Unassigned, Name Attending Clinician Unavailable Ha VALDEZ Attending Clinician Unavailable HA Attending Clinician Unavailable Eric Lee MD Attending Clinician Paul Taylor MD Attending Clinician HA Admitting Clinician Unavailable Payers Payer Name Policy Type Policy Number Effective Date Expiration Date [facility] [id number] HEALTH CHOICE MEDICAID - [id number] 2019 [facility] MEDICAID MGD 00:00:00 - Medical [place] [id number]/20-PresentMedic aid Contracted Problems This patient has no known problems. Allergies, Adverse Reactions, Alerts Allergy Allergy Status Severity Reaction(s) Onset Inactive Treating Comm ents Source Name Type Date Date Clinician [place] [facility] Active Nausea And [facility] St holloway Allergy Vomiting 11-10 - 00:00: Medical Center Social History Social Habit Start Date Stop Date Quantity Comments Source Sex Assigned At [facility] Tobacco use and 2020-11-16 2020-11-16 Never used [facility] - exposure 00:00:00 00:00:00 Medical Center Alcohol intake 2020-11-16 2020-11-16 Current drinker PELON [facility]as [facility] - 00:[facility]:00 [facility]:00:00 of alcohol Medical Center (finding) Alcohol Comment 2020-11-13 2020-11-13 occ PELON Gamble kes - 00:00:00 00:00:00 Medical Center Smoking Status Start Date Stop Date Source Never smoker [facility] edical Center Medications Ordered Filled Start Stop Current Ordering Indication Dosage Frequency Signature Comments Components Source Medication Medication Date Date Medication? Clinician (SIG) Name Name Missing or Yes BCP daily [facility] Non-Formula 11-16 . [facility] - ry 17:18: Medical Medication Center acetaminoph No 1000mg Take [address] en 11-16 tablets [facility] - (TYLENOL) 00:00: 23:59 (1,000 mg Me dical 500 MG 00 :00 total) by Center tablet mouth every 8 (eight) hours for 10 days. ibuprofen No 800mg Take [address] (ADVIL,MOTR 11-16 tablet [facility] - [place]) 800 MG 00:00: 23:59 (800 mg Med ical tablet 00 :00 total) by Center mouth every 8 (eight) hours for 10 days. Vital Signs Vital Name Observation Time Observation Value Comments Source Systolic blood 2020-11-16 17:05:00 117 mm[Hg] [facility] Diastolic blood 2020-11-16 17:05:00 81 mm[Hg] [facility] S [facility] Heart rate 2020-11-16 17:05:00 78 /min [facility] Respiratory rate 2020-11-16 17:05:00 16 /min [facility] Oxygen saturation in 2020-11-16 17:05:00 99 /min [facility] Arterial blood by Medical Ce nter Pulse oximetry Body temperature 2020-11-16 11:06:00 36.67 Diane [facility] Body height 2020-11-16 11:06:00 152.4 cm [facility] Body weight 2020-11-16 11:06:00 71.759 kg [facility] BMI 2020-11-16 11:06:00 30.90 kg/m2 [facility] Procedures Procedure Date / Time Performed Performing Clinician [facility] e TISSUE EXAM 2020-11-16 13:25:31 Marcella Bonner PELON [facility] MAMMOPLASTY,REDUCTION 2020-11-16 12:11:00 Marcella Bonner [facility] POCT-HEMOGLOBIN METER 2020-11-16 11:19:00 Marcella Bonner I [facility] POCT , URINE 2020-11-16 10:34:00 Luan Taylor [facility] Plan of Care Planned Activity Planned Date Details Comments Source Future Scheduled 2023-05-22 DTAP/TDAP/TD VACCINES [facility] Test 00:00:00 (2 - Td) [code = [facility] DTAP/TDAP/TD VACCINES (2 - Td)] Future Scheduled 2021-01-[address] [facility] - Test 00:00:00 (#1) [code = [facility] INFLUENZA VACCINE (#1)] Future Scheduled 2020-05-[address] [facility] - Test 00:00:00 (12+) [code = [facility] DEPRESSION SCREENING (12+)] Future Scheduled [address] [facility] - Test 00:00:00 malignant neoplasm of Medica l Center cervix (procedure) [code = 955317329] Future Scheduled [address] - Test 00:00:00 (procedure) [code = [facility] [id number]] Future Scheduled 2011-07-25 HEPATITIS C SCREENING [facility] - Test 00:00:00 [code = HEPATITIS C [facility] Center SCREENING] Future Scheduled 2005 COVID-19 VACCINE (1) [facility] - Test 00:00:00 [code = COVID-[address] VACCINE (1)] Encounters Start End Encounter Admission Attending Care Care Encounter Source Date/Time Date/Time Type Type Clinicians Facility Department ID 2020-12-14 2020-12-14 Outpatient YESSICA BONNER [facility] [id number] 003 [facility] 10:26:26 12:03:19 MARCELLA Reece ege of Medicin e 2020-12-14 2020-12-14 Office YESSICA Bonner [id number] 10:26:26 12:03:19 Visit Marcella AMBULATOR [id number] Y [id number] [id number] 2020-11-30 2020-11-30 Outpatient YESSICA BONNER [facility] [id number] 2 [facility] 08:17:33 09:15:40 MARCELLA Reece ege of Medicin e 2020-11-30 2020-11-30 Office YESSICA Bonner [id number] 08:17:33 09:15:40 Visit Marcella AMBULATOR [id number] Y 0.2.7.2.686 [id number] 2020-11-27 2020-11-27 [facility] [id number] 00:00:00 00:00:00 Rand Carrero [employer] [id number] [facility] [id number] MATERNAL [id number] & CHILD [address] [place] [address] 2020-11-25 2020-11-25 [facility] [id number] 17:00:00 23:59:00 Encounter Rand Ferrer [id number] [place] 4.2.7.2.686 [place] [id number] 2020-11-25 2020-11-25 Orders Doctor SORAYA [id number] 00:00:00 00:00:00 Only Unassigned, DAT 350.1.13.10 [place] [facility] 4.2.7.2.686 [id number] 2020-11-10 2020-11-10 Office [facility] [id number] 10:51:27 11:29:59 Visit Rand Carrero [employer] [id number] [facility] 4.2.7.2.686 MATERNAL [id number] & CHILD [address] [place] [address] 2020-09-07 2020-09-07 Office YESSICA Bonner [id number] 08:51:46 09:30:43 Visit Marcella AMBULATOR [id number] Y 0.2.7.2.686 [id number] Results Test Description Test Time Test Comments Results Result Comments Source Tissue Exam 2020-11-20 12:45:00 Test Item Value Reference Range Interpretation Comme nts Case Report (test code = 104) Surgical Pathology Report Case: [id number] Authorizing Provider: Marcella Bonner MD Collected: 11/16/2020 01:25 PM Ordering Location: [facility] Received: 11/16/2020 01:58 PM SERVICES Pathologist: Socorro Lombardo MD Specimens: A) - Breast, Right, specimen for [place] study B) - Breast, Left, specimen for [place] study C) - Breast, Right, total weight 0.100 kilos D) - Breast, Left, total weight 0.150 kilos DIAGNOSIS (test code = 3220) h0xinGIsFTCcy0eiFEHzrXIdSdQtHcPmQyIeKq pc dWMxIHtccnRmMVxlcGljOTIwMlxhbnNpXHNwbHRw Z9FyrbeuMIkcUF2dPL1bpRcvkCAuxDUrZAMvSdDx j7ewb183uETpf9xyXKGNoycyrKs4hWzfW38zk1Y4 GfdeX90brNEmBJhptFZgekkrdsMoJJWiYZAIDFQK QVgzMnfCBJNfRPOZKOPSPNsZLhRLKV8GM0LXNYNM NNfjlIMwMW7wPnPSWArNOQODYSOCZBTRPUMZYUBo JX0OFGFPXA0pcIToOLXhovZZZvCSZyUNZ5OyXKnJ LuPbGTXTQVCMSRqHQlZXCO7XQ0NQSDDZBFfolXFp JG0jPjIXPAiFJKDNCFMUSHDXZXSUCLZeJH9HRDUO BT7epEWvKEFjhbXytIViWCKzRIBDAXXIMKbeYzeU XCMcFEWRGECADPdCGkJZDW4CC9VJVREDIMeqhDNg VB8wScAGMSlVSHBTBCTQYTFCAAKGPMZlFT3MWFTO RK5dkAFlSRYlieOatIQdWGWpWOCCEHWJDAejZPCC YJzlPaVECSDENJ7YZT1CCW3ZTEgPM6WYNzguPTTw TGSQBX0DC92fQnQXIADUXOSKS4AOEPXITzKbP0yG VidbPJF5f8spoMBvQHDdiBIhWITwNCzijwYeLUHm XbombyzpGCDvHCX0tjMnSOXeGVuiCLExUFmfNu8a uVCxmRbwLfJhLMIln8zavmAOwhzenMb4q7bgHHTk HrC7gJQaQJvsJ3tjreGbsFReNEAuSLg4tY46HKZj hW8lfKYyKEeopyWrEhP4UIfsYRWnMwN8NICqfPQp HWIuD2wjJXXmNQxwTYGdYRlakMBxWCE1yNbnu7P1 fKNvnKKcxSluOqYxAzCcTjJGg2OvOIt6bFdkP4Un YBQfKrU8cNWfGEImCPobDYXfGXUwipV1pW36YWte spL4cBDqq4Tbq16ya693vZ3crBAgWUE8XZTlOEMa eOXcDSPoAFL5HTFuqIRoH9kqNWOkLC0jhrzeBNqm TBgwNCJjrQR8ECEpgDGnD8QfPQCsNGcrHRTtaxs6 IoLrDh9pvKYtoRmgYEqhp3qwy5zptBEvMrk6HQMg NlIyRfqaWUrjf8Yqe6jyTAJpvn8fUTW1nKMhvOpz o7X1oMUaSDYxjNEuYYLfPQ7ylQGuWBXqhD0pgizc OUGnIkDpdvpaLDRijXfmvcPzTs6rdJbdSXT1XJmt N0bnwI0wElW5YIkrW5ogyD6tVEv4QJwdRWSirJN8 krA6YECybHCtZ7XljI1eYAFqDX6cmfe0o0lrUDH1 ADryZTCqVrK4ufX0OTSxfOZiYFQvsCceCKuxl490 LWF7ZtIiWKTei5NaJ3XswYulV35qjQlyA50gWTCp sYxapN1jlSlyiQ2cLcBjEbIvBVlysCgrPE0rZFWw Z7ylfMUzRWPvQPQdK4rxKpLeuY2jpRspPMkgjaVt RRBuPso1TKAfcEIxGWTpVkn6XWPeBTCiZ04adjem WXO7zV9zl9dpx8HzZEtaUSD5ETBas18oODwbltV0 LZbbKq8jNUXlWUNpRTrwFFW0aS== COMMENT (test code = 9636) y0uzpANoJTOypTC0HqDtBAAut7hqe7EhaFIeuJUw JBvhsLLfavIbep27aHJ9vH30DM9lJPJkDzP1MSIf xqE3Olt2SQRmTPSukCYfP288o5ryy5edpkSkuXR6 qYwaKGGfZPJxENoyVFOeLmJjXu2uYLR2oMrrGN5m GU9mgJksdwSbU2gwfBNaeJMaarZxObsrCWNhroR5 qYUrq9EviIgwdaOkEFhpkGuqXFFoBUIgmu8= CPT Code(s) (test code = 4319) t0tivEZkZBYquTO2OnHoVXNhd9eqz7TtuDBz cGFy ZNlyzOBtbpToyr17pZM7wW79GE0rGOLjDrG7ACSs knL0Ksb1QADsUTGrxXNkI960o5jjr5irisBtsLN7 xEioODHyLKKwMYptZLYuRuLwAWheAUAiwMR9IGEg cn0= CLINICAL HISTORY (test code = 3356) g4twcJRsYSBzcJS5JzXcQEWhs6jgo6P sdHBncGFy BUqnjVZyuxGklk20xJZ2wD97YF5gEANzUjX9ODEe saU8Lwp6DLZkLVUbhBRuG401q7ymg8zedhMruKV7 vOxoRLYnESXxBLhiTFJfMcCpXGXvgp3gOUZ6rHQv XHBhcn0= SPECIMEN SOURCE (test code = 3377) n9wvyEYiMSGngHU6BcOdJCNcf4xhy1Pf dHBncGFy LYolrGLhodAdql80cSN3aR47ZL1mLXNoQpX5NBZo akT1Ynw4OYLnVRXylQAtU953v3zdd4xjfmYffCG7 cKutCTDxNTCiNMacIUGdGxOkGW0lEHOdEQCfwLdy rhpcoSVqfCtbHDNLUiCvQfGwSZF0XNTzPYW5XUuf pySmCp5xIJDuXGUtrLwqrpidaDWusQweHGHRAjEy AfFrQNS0WXZjUHG0WLBsql9= GROSS DESCRIPTION (test code = 3366) c8rqrIQuGTKhaZE5AlQjTXHqd4ver7 BsdHBncGFy AXafdWGjyeLxrv68oST1xR87MO6bTNFkYjZ9DPEg eyJ9Sxk5UTCkNVLzqXEdL607r6tvc1xpckUbiZL6 cLqqMNRfKGIxJWmgJOBdPmWuOX4bCfCrBMy4BPJj PqPoq5scfELxTWruCRP8sASsDUIuBTUjZCHtZZ66 XCdiNHMgbmFtZSwgbWVkaWNhbCByZWNvcmQgbnVt VfOqRIQoNUHoStLrYEZ4RMXpvBdmhEDatMGyARZ3 LPJvM4BtrVHhSILpIKrqZEDsjZJjDzPuG12cnMWs GGd9vUZoYRHrezBui38pc6DjmAToaI57CQPzIlVl QgN0gJmuReNhDAY4ZUKjf3C0SZKxZYA5oTIrhGel v0LzOvUzJWYwGvpfaB8tBD5fhrynQfgyCMQevtXs n5vsQtWSXDG0rL2clT1mYZYmxfCihSPyXXIdSMFa wFKjo3OhKW3dAXNeKWEuwRQik4OaZWOul6F1FB3a WP3fYTsrg7PuTClrz8tkqjJtAIVdWJmuDX89eZKi FARkDFEsjTEwy2IgmRC2tNFdJTWbC8Tap36yECBx ISTvlUJseUL0HEWyaK7eFRJjTEPwWEHhjzgmSJJn VLvmJBXyteWsw9GdRWhghagyTd4vRB2aCXWyPYS1 IDEzNThccGFyXHBhciBCLiBSZWNlaXZlZCBmcmVz nJWqEMHigEKdXCxoeBqnkNxpFYNlbNyxigAyQ3H1 oaArKN3oEZIjPEPyQ2WmBCNyN15nHJXctM0cROIk ON2aQAXopjFwz9WlGNkuWtGjRBryPZNxAbc0BPya SW7vBJKcEFK1BSGbOUsbIw54EXQkMNAmnSUaDIs4 uYIiMJHqiwWob10bz6MlbTLfbZ05PNFiNmCqWkY2 cMveRsXiFBW3JARaq0E4RVLmDVV5pXKebMulz5Hf FoTwCFBdWruobD6zNJ2zbdtaCggnSAEutxLhk6jc ZlCZKIF5iH5saG4mMHAjywMhcQQmIOXoXOSefGLn r1WfBI5rTPBjPQZltVPwy8SpMDNca8E0EE2bUK0c VJgkq4JfPXeeq0bsqjWiCMVaIUdpEU46bYItSURo JMPrkZOmd0NrzSQ1jVBwUDOlS3Zvm02hWGFlPDPc eQTawPC4CWCrqC9sAqSdEwEhWNUgyxifYHHkJOct RYQcjfPzc9YuQCoazaljKp1oUI8kJONaQVS8SHTm FYncqFDwDVLdfiEGRkNyPmCbEPc2CCUfBzVoq2wq hYLdCYhsUXP7wNWyRGNpRCQwUVXsZQ18M1TsvxIp MDoeHHRzPZCdrW1jBS04bSFghbEmbuRcEaRoO3f2 JCCnBGJqzKBnlHFdUXQeAZVrW8FvsYDdXZolLKD4 NMweOMH1ZIXwNgEvhFQwZ2ekXTtazENfz9WawIRd HMxmwQdloltsXgwwxz8xMFW8jEFjpiWfk4OnhAmu n3ReRPrbfJmoAMM3CSHkBVMqERuso8BwpJgnmL0a LH0kvgpzKokaVPKeplQpv4jyWsSiI8CliKtbfwqo ZyByZXZlYWxzIGFwcHJveGltYXRlbHkgNDAlIGRl xsMcVHrvvLCcTTTcKfSqgXKcbF4cEcSsFFmjaYvk xqBoZWkgg1GnHKInq4F7HX9jFO1eFBEth0NqEWZg TDrti1kbbuLjYNIvOPooAC62oBShXJPmJCBMIARv DIYdfmBphWp4SSMeNJF7sH7tdfQbqoKde0DccXf7 dGVkIGluIEMxLUMyLiBQQVxwYXJccGFyIEQuICBS ZWNlaXZlZCBmcmVzaCBsYWJlbGVkIHdpdGggdGhl SIMyyZeqhaYjvxUgDE7wMBVfF6Xvx7Cdi92slcPi ZgJqLTHaDQYwiMHchMPjvnFwe0GeENniMWIdHNFg XPfpML0wULKpCE73ERdkMM8qPVzpCA5tKBKnXTIs T6BtO5B4GLZrVjN9SC0ehOSiuS89WHStmCNhs7Hf nLP8ZDAaAEFjyCQ8lPWlxTAax9k1cJRbeXXvG6da XCgiG5Hvc8OoiLZ8qqEklZIqm9OaoKFzfXDmJRHo xY3bTRIGKRS4kO1oqH4dNRIrewNtgHRwALQxgr59 gH5qiGFfdUX6WCNrKLDia5Huo2rreVLrKeapzb72 uyV0edE4QNJxnQKhlK34KGYoeLHqt8BniNchh2Pm JxYvYe1gSFghT4AviZFffXSqeI5qplNjmsTwwTPc feBvChabLC2aPZDouSAel9LshYT1tNQpBSDaI7Ko l01lERXaSLDudLYquOJ4PXQbsD1wTWIwUDFoYECM PEMbnnuePGGoW1wkdTOqDLMEvvW3erqvMDeBUZJG QSAoQVNDUClccGFyfQ== MICROSCOPIC DESCRIPTION (test code = g6ujhSYdODMxcXG7CyQlFSMdf8mow5 BsdHBncGFy [facility]) FFqgqXCoctQfkk53oTH9fK79KM3eDXGeKbA5WYCe lcS2Scl8JZUfMPKdrVOqY592d5tzw3famoJegXO5 xWruMBAmZEGnPXsmYBXoYaTmMZ5NTjWWmNYvp0Vy p8KiIiFpxXTvpV8kqCvbhzUzXGTgg2ZzZHFfLDGs knMiyxtiAXOyAIIwbeFiiwElnhX6PNBaqN43nkT3 dOEvRinlNSwiJMaiM48ti5jyRtniZZB6 Gross assessment was performed at (test [facility] C enter, code = 2777) Department of Pathology, [address] [place] [address], Technical component was performed at [facility] er, (test code = 2778) Department of Pathology, [address] [place] [address] 9[address]44, Professional component was performed at [facility] enter, (test code = 2779) Department of Pathology, [address] [place] [address], [facility] [id number] 12:45:00Surgical Pathology Report Case: [id number] Authorizing Provider: Marcella Bonner MD Collected: 11/16/2020 01:25 PM Ordering Location: [facility] Received: 11/16/2020 01:58 PM SERVICES Pathologist: Socorro Lombardo MD Specimens: A) -Breast, Right, specimen for [place] study B) - Breast, Left, specimen for [place] study C) - Breast, Right, total weight 0.100 kilos D) - Breast, Left, total weight 0.150 kilos A. BREAST, RIGHT, REDUCTION MAMMOPLASTY:- BENIGN BREAST TISSUE AND SKINB. BREAST, LEFT, REDUCTION MAMMOPLASTY:- BENIGN BREAST TISSUE AND SKINC. BREAST, RIGHT, REDUCTION MAMMOPLASTY:- BENIGN BREAST TISSUE AND SKIND. BREAST, LEFT, RED UCTION MAMMOPLASTY:- BENIGN BREAST TISSUE AND SKIN Signing Pathologist Direct Phone Line: [phone] signed by Socorro Lombardo MD on 11/20/2020 at 12:45 PMNo atypia or malignancy is identified on the sections examined.[id number] x 4Macromastia A. Breast, rightB. Breast, leftC. Breast, rightD. Breast, leftA. Received fresh labeled with the patient's name, medical record number and "breast, right" is a 504 grams, 21 x 14 x 3.5 cm irregular portion of yellow fibrofatty breast tissue partially surfaced by unremarkable holloway skin. Sectioning reveals 90% adipose and 10% fibrous tissue. No gross lesions are identified. Reporting Coordinator sections are submitted in A1- A2.Time in formalin: 11/16/2020 at 1358B. Received fresh labeled with the patient's name, medical record number and"breast, left" is a 299 grams, 20 x 12 x 2.8 cm a irregular portion of yellow fibrofatty breast tissue partially surfaced by unremarkable holloway skin. Sectioning reveals 90% adipose and 10% fibrous tissue. No gross lesions are identified. Reporting Coordinator sections are submitted in B1-B2.Time in formalin: 11/16/2020 at 1358C. Received fresh labeled with the patient's name, accession number and "right breast" is a 100 grams, 8.0 x 7.5 x 3.2 cm aggregate of holloway-yellow, fibrofatty breast tissue with attached, grossly unremarkable holloway skin. Sectioning reveals approximately 40% dense white fibrous to 60% yellow adipose tissue. No discrete lesions are identified. Reporting Coordinator sections are submitted in C1-C2. PAD. Received fresh labeled with the patient's name, accession number and "left breast" is a 150 grams, 10.4 x 9.0 x 4.0 cm aggregate of holloway-yellow, fibrofatty breast tissue with attached, grossly unremarkable holloway skin. Sectioning reveals approximately 40% dense white fibrous to 60% yellow adipose tissue. No discrete lesions are identified. Reporting Coordinator sections are submitted in D1-D2. RAYMOND Magdaleno PA ([facility])A-D. Microscopic examination performed, findings are incorporated into the final diagnosis.[facility], Department of Pathology, [address] [place] [address], [facility], Department of [facility]ology, [address] [place] [address], [facility], Department of Pathology, [address] [place] [address], ETN-Hemoglobin meter 2020-11-16 11:34:00 Test Item Value Reference Range Interpretation Comments POC-Hemoglobin Meter 11.6 g/dL 12-15 L : TESTE D AT [facility] (test code = 1539) [address] [place] [address], [facility] 30: Loan Funder/Techni abdi ID = [id number] for Faby Celis Lab Interpretation (test Abnormal code = 81722-0) [facility] [id number] 11:34:00 Test Item Value Reference Range Interpretation Comments POC-HEMOGLOBIN METER 11.6 g/dL 12.0-15.0 L : TESTE D AT [facility] 6720 (BEAKER) (test code = [place], 1539) [address]: Loan Funder/Techni abdi ID = [id number] for Caroline Faby pickett POCT , [id number] 10:37:00 Test Item Value Reference Range Interpretation Comments Test Urine, POC (test Negative code = 1444098) Control line present?, POC (test Yes code = 8891124) Background clear?, POC (test code Yes = 8927948) UPT Cassette Lot #, POC (test code 4678237 = [id number]) UPT Cassette Expiration Date, POC 05/21/2022 (test code = 2662020) Lab Interpretation (test code = Normal 36663-7) [facility]
--- NOTE | 2020-12-17 02:10 | ER ---
Nurse's Notes [facility] Name: Norma Faulkner Age: 25 yrs Sex: Female : 1995 Arrival Date: 12/17/2020 Time: 00:21 Bed External Waiting Private MD: Diagnosis: Presentation: 12/17 01:18 Chief complaint: Patient states: shortness of breath, N/V for 1 week. Coronavirus tl1 screen: Client denies travel out of the [place] in the last 14 days. Ebola Screen: Patient negative for fever greater than or equal to 101.5 degrees Fahrenheit, and additional compatible Ebola Virus Disease symptoms Patient denies exposure to infectious person. Patient denies travel to an Ebola-affected area in the 21 days before illness onset. No symptoms or risks identified at this time. Initial Sepsis Screen: Does the patient meet any 2 criteria? HR > 90 bpm. No. Patient's initial sepsis screen is negative. Does the patient have a suspected source of infection? No. Patient's initial sepsis screen is negative. Risk Assessment: Do you want to hurt yourself or someone else? Patient reports no desire to harm self or others. Onset of symptoms was December 17, 2020. 01:18 Method Of Arrival: Wheelchair tl1 01:18 Acuity: WINDY 3 tl1 Historical: - Allergies: 01:20 NKA; tl1 - PMHx: 01:20 Asthma; tl1 - PSHx: 01:20 section; breast reduction; tl1 - Immunization history:: Adult Immunizations up to date. - Social history:: Smoking status: Patient denies any tobacco usage or history of. Vital Signs: 01:18 BP 107 / 75; Pulse 130; Resp 18; Temp 98.4(O); Pulse Ox 100% on R/A; Weight 72.57 kg; tl1 Height 5 ft. 0 in. (152.40 cm); Pain 9/10; 01:18 Body Mass Index 31.25 (72.57 kg, 152.40 cm) tl1 ED Course: 00:21 Patient arrived in ED. bp1 01:20 Triage completed. tl1 01:20 Arm band placed on. tl1 Administered Medications: No medications were administered Outcome: 02:09 Patient left the ED. em Signatures: Jordan Scott RN RN em Laury Mckeon RN RN tl1 Rae Dowling bp1
[2020-12-17 18:36] VITALS: BP 107/75; TEMP 98.4; O2SAT 100
== END 2020-12-17 02:09 | disposition left against medical advice (07) ==
LOC: ER 00:19
DX: Z53.21 Procedure and treatment not carried out due to patient leaving prior to being seen by health care provider (principal)
CPT/HCPCS: 99281